=== PATIENT | male | born 1955 | race Caucasian/White ===

== ENCOUNTER 2017-12-22 08:02 | Outpatient (CLI) | payer OTHER ==
[~2017-12-22] VITALS: Ht 188 cm; Wt 96.8 kg
--- NOTE | ~2017-12-22 | HEMODYNAMI ---
PATIENT:RACHELL MEYER MEDICAL RECORD: [id number] : 57 LOCATION:[facility] ADMISSION DATE: 12/22/17 Generatedon:12/22/201710:44 Patient name: RACHELL MEYER Patient #: [id number] SSN: : 1955 Date of study: 12/22/2017 Page: Of Hemodynamic Procedure Report Patient Data Patient Demographics Procedure consent was obtained First Name: RACHELL Gender: Male Last Name: BETSY : 1955 Middle Initial: JAYCOB Age: 62 year(s) Patient #: [id number] Race: Unknown Additional ID: [id number] Contact details Address: [address] [place] [address] [place] State: [place] City: [facility] Zip code: [address] Past Medical History Allergies Allergen Reaction Date Comments Reported Other allergy 12/22/2017 crestor Admission Admission Data Admission Date: 12/22/2017 Admission Time: 8:02 Lab Results Lab Result Date: 12/22/2017 Lab Result Time: 0:00 Biochemistry Name Units Result Min Max BUN mg/dl 18 --(---*)-- 7 18 Creatinine mg/dl 1.2 --(---*)-- 0.6 1.3 CBC Name Units Result Min Max Hemoglobin g/dl 14 --(*---)-- 13.5 17.5 Procedure Procedure Types Cath Procedure Peripheral Cath Diagnostic Procedure Cath Peripheral Iuwkp-Rnwjjix-Zqp-Off Four Vessel Arteriogram Peripheral vascular Intervention Angioplasty Angioplasty Fem/Pop Stent Stent Iliac w/plasty Initial Procedure Description Procedure Date Procedure Date: 12/22/2017 Procedure Start Time: 10:07 Procedure End Time: 10:37 Procedure Staff Name Function Umberto Ramey MD Performing Physician Lore Christensen RT Scrub Nikhil Villafuerte RN Nurse Procedure Data Cath Procedure Fluoroscopy Diagnostic fluoroscopy Total fluoroscopy Time: 4.7 time: 4.7 min min Diagnostic fluoroscopy Total fluoroscopy dose: 285 dose: 285 mGy mGy Contrast Material Contrast Material Type Amount (ml) Isovue 300 143 Entry Location Entry Primary Successful Side Size Upsize Upsize Entry Closure Succes sful Closure Location (Fr) 1 (Fr) 2 (Fr) Remarks Device Remarks Femoral Right 5 Fr 6 Fr 6 Fr Exoseal artery Long Short Diagnostic catheters Device Type Used For End Catheter Placement DIAGNOSTIC 3DRC 5Fr catheter ([id number]) DIAGNOSTIC UF 5Fr Abdominal catheter ([id number]) aortogram with runoff Procedure Complications No complications Procedure Medications Medication Administration Route Dosage 0.9% NaCl I.V. 100 ml/hr Oxygen etCO2 Nasal cannula 2 l/min Heparin Flush Bag added to field 2 bags (1000units/500ml NS) Lidocaine 2% added to field 20 Versed I.V. 2 mg Fentanyl I.V. 100 mcg Versed I.V. 1 mg Heparin Bolus I.V. 4000 units Integrilin (Bolus I.V. 9 ml 2mg/ml) Integrilin (Bolus wasted 1 ml 2mg/ml) Plavix P.O. 600 mg Hemodynamics Rest HGB: 14 (g/dl) Heart Rate: 64 (bpm) Snapshots Pre Cath Intra NCS Post Cath Vital Signs Time Heart Resp SPO2 etCO2 NIBP (mmHg) Rhythm Pain Sedation Rate (ipm) (%) (mmHg) Status Level (bpm) 9:28:16 69 16 97 0 125/68(109) NSR 0 (11) 10(A) , No pain 9:32:32 81 18 98 31.4 112/67(90) NSR 0 (11) 10(A) , No pain 9:36:42 74 15 96 29.9 104/67(82) NSR 0 (11) 10(A) , No pain 9:40:50 78 13 98 28.4 99/64(77) NSR 0 (11) 10(A) , No pain 9:44:56 71 18 95 15.7 97/67(76) NSR 0 (11) 10(A) , No pain 9:49:02 65 13 97 16.4 103/60(83) NSR 0 (11) 10(A) , No pain 9:53:09 79 13 95 19.5 106/64(80) NSR 0 (11) 10(A) , No pain 9:57:19 71 13 95 17.2 95/58(76) NSR 0 (11) 10(A) , No pain 10:01:25 72 13 96 11.9 91/57(71) NSR 0 (11) 10(A) , No pain 10:05:31 69 13 96 0 98/56(68) NSR 0 (11) 10(A) , No pain 10:09:39 72 19 97 19.4 99/55(76) NSR 0 (11) 10(A) , No pain 10:13:46 72 21 96 9.7 94/58(70) NSR 0 (11) 10(A) , No pain 10:17:54 72 15 95 1.4 91/53(74) NSR 0 (11) 9(A) , No pain 10:22:02 71 18 95 0 83/49(63) NSR 0 (11) 9(A) , No pain 10:26:08 71 16 95 0 90/48(62) NSR 0 (11) 9(A) , No pain 10:30:14 73 19 94 0 89/54(73) NSR 0 (11) 10(A) , No pain 10:34:17 72 14 96 0 93/55(67) NSR 0 (11) 10(A) , No pain Medications Time Medication Route Dose Verified Delivered Reason Notes Effectiveness by by 9:33:03 0.9% NaCl I.V. 100 Nikhil Nikhil Per physician ml/hr Christo Villafuerte RN RN 9:33:12 Oxygen etCO2 2 Nikhil Nikhil Per physician Nasal l/min Christo Villafuerte cannula RN RN 9:33:23 Heparin Flush added 2 Nikhil Nikhil used for Bag to bags Christo Villafuerte procedure (1000units/500ml field GOODEN RN NS) 9:33:34 Lidocaine 2% added 20ml Nikhil Nikhil for local to vial Christo Villafuerte anesthetic field GOODEN RN 10:07:43 Versed I.V. 2 mg Nikhil Nikhil for sedation Christo Villafuerte RN RN 10:07:52 Fentanyl I.V. 100 Nikhil Nikhil for sedation mcg Christo Villafuerte RN RN 10:16:12 Versed I.V. 1 mg Nikhil Nikhil for sedation Christo Villafuerte RN RN 10:16:24 Heparin Bolus I.V. 4000 Nikhil Nikhil for units Christo Villafuerte anticoagulation RN RN 10:17:16 Integrilin I.V. 9 ml Nikhil Tejeda for (Bolus 2mg/ml) Christo Villafuerte antiplatelet RN RN therapy 10:17:25 Integrilin wasted 1ml Nikhil Tejeda to sharp's (Bolus 2mg/ml) Christo Villafuerte RN RN 10:32:10 Plavix P.O. 600 Nikhil Tejeda for mg Christo Villafuerte antiplatelet RN RN therapy Procedure Log Time Note 9:18:06 Federico Roberson on monitor 9:18:11 Nikhil Villafuerte RN sent for patient. Start room use. 9:18:12 Time tracking: Regular hours (M-F 7:00 - 5:00) 9:18:17 Plan of Care:Hemodynamics will remain stable., Cardiac rhythm will remain stable., Comfort level will be maintained., Respiratory function will remain adequate., Patient/ family verbilizes understanding of procedure., Procedure tolerated without complication., Recovers from procedure without complications.. 9:27:06 Patient received from Pre/Post Procedure Room to [facility] 2 Alert and oriented. Tansferred to table in Supine position. 9:27:07 Warm blankets applied, and parth hugger turned on for patient comfort. 9:27:08 Correct patient and procedure confirmed by team. 9:27:09 Signed procedure consent form obtained from patient. 9:27:11 ECG and BP/O2 sat monitors applied to patient. 9:27:13 Vital chart was started 9:27:14 Baseline sample Acquired. 9:33:03 0.9% NaCl 100 ml/hr I.V. was administered by Nikhil Villafuerte RN; Per physician; 9:33:12 Oxygen 2 l/min etCO2 Nasal cannula was administered by Nikhil Villafuerte RN; Per physician; 9:33:23 Heparin Flush Bag (1000units/500ml NS) 2 bags added to field was administered by Nikhil Villafuerte RN; used for procedure; 9:33:34 Lidocaine 2% 20ml vial added to field was administered by Nikhil Villafuerte RN; for local anesthetic; 9:35:29 Baseline sample Acquired. 9:35:33 Rhythm: sinus rhythm 9:35:34 Full Disclosure recording started 9:36:25 H&P Date Dictated: 12/18/2017 Within 30 days and on chart.. 9:36:26 Pre-procedure instructions explained to patient. 9:36:27 Pre-op teaching completed and patient verbalized understanding. 9:36:29 Family in waiting room. 9:36:31 Patient NPO since Midnight. 9:37:00 Patient allergic to Other allergycrestor 9:37:02 Is the patient allergic to Iodine/contrast media? No. 9:37:07 Was the patient premedicated? No 9:37:09 Is patient on blood thinner?No 9:37:19 Patient diabetic? No. 9:37:21 If diabetic: On Metformin? No 9:37:22 ----Pre-sedation anethsthesia assessment.---- 9:37:26 Previous problem with sedation/anesthesia? No ? 9:37:29 Snore? Yes 9:37:30 Sleep apnea? No 9:37:32 Deviated septum? No 9:37:33 Opens mouth fully? Yes 9:37:35 Sticks out tongue? Yes 9:37:37 Airway obstruction? No ? 9:37:40 Dentures? Yes out 9:37:44 Pre procedure: right dorsailis pedis pulse 1+ Palpable, but thready & weak; easily obliterated 9:37:47 Pre procedure: left dorsailis pedis pulse 1+ Palpable, but thready & weak; easily obliterated 9:37:51 Patient pain scale 0/10 ?. 9:37:58 IV patent on arrival in left forearm with 0.9% NaCl at 10ml/hr. 9:38:15 Lab Result : Creatinine 1.2 mg/dl 9:38:15 Lab Result : BUN 18 mg/dl 9:38:15 Lab Result : Hemoglobin 14 g/dl 9:38:19 Lab results completed and on chart. 9:38:22 Bilateral groins area was prepped with chlora-prep and draped in sterile fashion 9:38:23 Alarms reviewed by R. N. 9:38:24 Sharps counted by scrub and verified by R.N. 9:41:39 ACIST Syringe (91357) opened to sterile field. 9:41:40 Bag Decanter () opened to sterile field. 9:41:42 Medline Cath Pack ([id number]) opened to sterile field. 9:41:43 DIAGNOSTIC WIRE .035 260cm J wire (356488) opened to sterile field. 9:41:44 ACIST Hand Control (40291) opened to sterile field. 9:41:46 Tegaderm 4 x 4 (1626W) opened to sterile field. 9:41:47 PERCUTANEOUS ENTRY 19GA needle opened to sterile field. 9:41:51 SHEATH Prelude 5Fr 0.035 (OPE-5Z-17-035) opened to sterile field. 9:42:58 Zero performed for pressure channel P1 9:57:21 Physician arrived 10::17 --------ALL STOP TIME OUT------ ::17 Final Timeout: patient, procedure, and site verified with staff and physician. All members of the team are in agreement. 10:07:19 Bilateral groins site verified by team. 10:07:22 Physical assessment completed. ASA score P 2 - A patient with mild systemic disease as per Umberto Ramey MD. 10:07:27 Sedation plan: IV Moderate Sedation Medication:Versed, Fentanyl 10:07:32 Procedure started. 10:07:43 Versed 2 mg I.V. was administered by Nikhil Villafuerte RN; for sedation; 10:07:51 Local anesthetic to left femerol artery with Lidocaine 2% by Umberto Ramey MD.INITIAL ACCESS ONLY 10:07:52 Fentanyl 100 mcg I.V. was administered by Nikhil Villafuerte RN; for sedation; 10:08:04 [employer] rt monitor 10:08:13 A 5 Fr sheath was inserted into the Right Femoral artery 10:08:47 A DIAGNOSTIC 3DRC 5Fr catheter ([id number]) was advanced over the wire and used for . 10:08:57 4v 10:09:24 Right carotid angiography performed. 10:09:26 Right subclavian angiography performed 10:09:27 Left carotid angiography performed. 10:09:28 Left subclavian angiography performed 10:10:02 Catheter removed. 10:10:33 A DIAGNOSTIC UF 5Fr catheter ([id number]) was advanced over the wire and used for Abdominal aortogram with runoff. 10:10:48 Abdominal angiogram w/ runoff was performed. 10:11:39 Left leg runoff performed. 10:11:41 Right leg runoff performed. 10:12:08 SHEATH 6FR Destination (RSR01) opened to sterile field. 10:12:20 Sheath upsized to a 6 Fr Long. 10:12:44 SHEATH 6Fr Prelude ([id number]) opened to sterile field. 10:13:21 INFLATOR Merit BasixCompak (VS2510) opened to sterile field. 10:13:34 GLIDE WIRE Super Stiff Angled 260cm (IB5830) opened to sterile field. 10:14:08 glide wire advanced. 10:14:53 glidewire advanced around horn through UF, UF removed and 5fr sheath exchanged for a 6fr destination 10:16:12 Versed 1 mg I.V. was administered by Nikhil Villafuerte RN; for sedation; 10:16:24 Heparin Bolus 4000 units I.V. was administered by Nikhil Villafuerte RN; for anticoagulation; 10:17:03 CHOICE PT Extra Support J 300cm guide wire ([id number]) opened to sterile field. 10:17:16 Integrilin (Bolus 2mg/ml) 9 ml I.V. was administered by Nikhil Villafuerte RN; for antiplatelet therapy; 10:17:18 Wire removed. 10:17:24 Wire advanced across lesion. cptes 10:17:25 Integrilin (Bolus 2mg/ml) 1ml wasted was administered by Nikhil Villafuerte RN; to sharp's; 10:22:44 Inflate balloon Inflation number: 1 A STELLAREX 6 x 40 DE balloon ([id number]) was prepped and advanced across the Distal Superficial Femoral, Right, then inflated to 15 ERICA for 3:54 (min:sec). 10:25:01 Inflation number: 2 The STELLAREX 6 x 40 DE balloon ([id number]) was reinflated across the Distal Superficial Femoral, Right, to 14 ERICA for 2:10 (min:sec). 10:25:48 Balloon removed over the wire. 10:26:47 Procedure type changed to Cath procedure, Peripheral Cath Diagnostic Procedure, Cath Peripheral, Wdons-Jnnayau-Pbi-Off, Four Vessel Arteriogram, Peripheral vascular Intervention, Angioplasty, Angioplasty Fem/Pop, Stent, Stent Iliac w/plasty Initial 10:27:25 destination backed out to the left iliac for stenting 10:31:27 Place stent Inflation Number: 1 A PAULO 7 x 18 x 135 stent ([id number]) was prepped and advanced across the Mid Common Iliac, Left. The stent was deployed at 11 ERICA for 0:48 (min:sec). 10::34 Stent catheter was removed intact over wire. 10::35 Wire removed. 10::44 Sheath upsized to a 6 Fr Short. 10::44 Sheath removed intact; hemostasis achieved with Exoseal to the Right Femoral artery. 10:31:50 Procedure ended.(Physican Out) 10:32:02 EXOSEAL 6Fr (EX600) opened to sterile field. 10:32:10 Plavix 600 mg P.O. was administered by Nikhil Villafuerte RN; for antiplatelet therapy; 10:33:25 Fluoroscopy time 04.70 minutes. 10:33:31 Fluoroscopy dose: 285 mGy 10:33:31 Flurop Dose total: 285 10:34:39 Contrast amount:Isovue 300 143ml. 10:34:40 Sharps counted by scrub and verified by R.N. 10:34:42 Insertion/operative site no bleeding no hematoma. 10:34:45 Post-op/insertion site Left Femoral artery dressed using a 4 x 4 and Tegaderm. 10:34:49 Post left femerol artery:stable 10:34:51 Post Procedure Pulses reassessed and unchanged 10:34:54 Post procedure rhythm: sinus rhythm 10:34:57 Post procedure instruction explained to patient.Patient verbalizes understanding. 10:34:59 Procedure and supply charges have been captured, reviewed, submitted and are correct. 10:37:35 Procedure Complication : No complications 10:37:37 Vital chart was stopped 10:37:38 See physician's report for complete and final results. 10:37:41 Report given to Pre/Post Procedure Room. 10:37:49 Patient transfered to Pre/Post Procedure Room with Stretcher. 10:37:51 Procedure ended. 10:37:51 Full Disclosure recording stopped 10:37:54 End room use (Document Last) Intervention Summary Intervention Notes Time ActionType Lesion and Equipment Used Action# Pressure Duration Attributes 10:22:44 Inflate Distal STELLAREX 6 x 40 1 15 03:54 balloon Superficial DE balloon Femoral, ([id number]) Right 10:25:01 Reinflate Distal STELLAREX 6 x 40 2 14 02:10 balloon Superficial DE balloon Femoral, ([id number]) Right 10:31:27 Place stent Mid Common PAULO 7 x 18 x 1 11 00:48 Iliac, Left 135 stent ([id number]) Device Usage Item Name Manufacture Quantity Catalog Number [facility] nt Minimal Lot# / Charge Number Stock Stock Serial# Code ACIST Syringe Acist 1 33889 [id number] 351500 89029 3 20 (63558) [employer] Bag Decanter Microtek 1 2001S 750330 83412 75012 1 5 () Medical Inc. Medline Cath Pack Cardinal 1 [id number] 586568 86995 82002 1 5 ([id number]) Health DIAGNOSTIC WIRE St Krunal 1 876498 976696 909677 96807 0 30 .035 260cm J wire (927436) ACIST Hand Acist 1 00984 688868 259496 60846 6 5 Control (67753) [employer] Inc Tegaderm 4 x 4 3M 1 1626W 887121 337467 30583 2 5 (1626W) PERCUTANEOUS Cook Medical 1 T54187 439609 43683 6 5 ENTRY 19GA needle SHEATH Prelude Merit 1 MDH-7G-57-035 437010 630709 16205 6 5 5Fr 0.035 Medical (CVU-7W-61-035) DIAGNOSTIC 3DRC Cardinal 1 [id number] 189872 142172 57310 1 9 5Fr catheter Health (780176J) DIAGNOSTIC UF 5Fr Cardinal 1 [id number] 035667 088387 07342 0 10 catheter Health (443064W7) SHEATH 6FR Terumo 1 RSR01 415362 06336 79910 1 5 Destination (RSR01) SHEATH 6Fr Merit 1 [id number] 582246 818758 38002 7 5 Prelude Medical ([id number]) INFLATOR Merit Merit 1 LI1147 898321 728794 78190 6 15 Codenvy Medical (YI3187) GLIDE WIRE Super Terumo 1 XK8580 450846 796071 93705 0 5 Stiff Angled 260cm (XA5470) CHOICE PT Extra Rives 1 [id number] 332389 446209 29050 8 5 [id number] Support J 300cm Scientific guide wire (3255980Z5) STELLAREX 6 x 40 Paula 1 [id number] 036832 594833 74775 7 5 [id number] MA balloon [facility] ([id number]) (356636) PAULO 7 x 18 x Cardinal 1 [id number] 519045 05977 3 5 [id number] 135 stent Health ([id number]) EXOSEAL 6Fr Cardinal 1 EX600 745040 988518 54584 3 10 (EX600) Health Signature Audit [place] Stage Time Signature Unsigned Intra-Procedure 12/22/2017 Lore Christensen 10:44:09 AM RT(R) [id number] [place] [address]
--- NOTE | ~2017-12-22 | OP ---
PATIENT NAME: RACHELL MEYER MEDICAL RECORD: [id number] :57 LOCATION:D.CAT ADMISSION DATE: SURGEON: YADIEL DURAN MD DATE OF OPERATION: 12/22/2017 FOUR-VESSEL CAROTID AND VERTEBRAL ANGIOGRAPHY INDICATIONS: Unsteady gait, dizziness, syncope, carotid vascular disease. PROCEDURE IN DETAIL: After informed consent was obtained and detailed description of risks, benefits as well as alternative therapies, the patient elected to proceed with angiogram and carotid angiography. FINDINGS: There was subselection of each subclavian as well as left carotid. RIGHT SIDE: Common internal and external carotids have mild plaquing, none greater than 20%, no flow-limiting stenosis. Vertebral artery has no significant disease. LEFT SYSTEM: The common internal and external carotids have mild plaquing, no greater than 20%, no flow-limiting stenosis. Vertebral artery has no significant disease. OVERALL IMPRESSION: No significant carotid vascular disease is present. Symptomatology is not secondary to carotid vascular insufficiency. TRANSINT:[id number] Voice Confirmation ID: [id number] DOCUMENT ID: [id number] YADIEL DURAN MD at 1752 CC: [id number] DICTATION DATE: 12/22/17 1036 CHARGE MASTER SPECIALIST: 12/27/17 1118 DEP CLI 12/22/17 [address] [place] [address]
--- NOTE | ~2017-12-22 | OP ---
PATIENT NAME: RACHELL MEYER MEDICAL RECORD: [id number] :57 LOCATION:D.CAT ADMISSION DATE: SURGEON: YADIEL DURAN MD DATE OF OPERATION: 12/22/2017 DATE OF SERVICE: 12/22/2017 PROCEDURES: 1. Stent placement, iliac, left. 2. SIGNAL HELPER iliac, left. 3. SIGNAL HELPER, right popliteal. 4. Aortofemoral runoff. 5. Abdominal aortography. INDICATION: Claudication and peripheral vascular disease. DESCRIPTION OF PROCEDURE: After informed consent was obtained and after detailed description of risks, benefits as well as alternative therapies, the patient elected to proceed with angiogram and angioplasty. The left femoral area was prepped and draped in normal sterile fashion. Left femoral artery was cannulated via modified Seldinger technique with placement of 6-Turkish sheath. All catheters exchanged through this sheath. FINDINGS: The abdominal aortography was performed. The catheter was pulled down for aortofemoral runoff. Abdominal aortography reveals no significant abdominal aortic disease. No dissection or aneurysm formation. RIGHT LEG: A. Iliac: The common internal and external iliacs have mild irregularities, but no flow-limiting stenosis. B. Femoral system: The common superficial and deep femoral have mpeh-ad-aljdlihn irregularities, but no flow-limiting stenosis. C. Popliteal and infrapopliteal: The popliteal vessel has a previously placed stent with greater than 70% in-stent restenosis in the mid portion of the stent. Infrapopliteal vessels are patent giving a 3-vessel runoff to the foot. LEFT LEG: A. Iliac: The common iliac is devoid of disease. The external iliac has greater than 70% stenosis at its proximal aspect. B. Femoral system: The common superficial and deep femoral have zrhr-xu-uummpors irregularities, but no flow-limiting stenosis. C. Popliteal and infrapopliteal vessels are patent giving 3-vessel runoff to the foot. SIGNAL HELPER OF THE RIGHT POPLITEAL: We used a drug-eluting balloon, which was a 6.0 x 40 Stellarex. Two inflations were made at 3 minutes each. Result was 0% residual stenosis throughout. SIGNAL HELPER STENT OF LEFT ILIAC: Balloon and stent combination used was a 7 x 10 Cordis Donna. Result was 0% residual stenosis. OVERALL IMPRESSION: Successful percutaneous transluminal angioplasty stent of the left iliac and successful percutaneous transluminal angioplasty with drug-eluting balloon of the right popliteal for in-stent restenosis, both going from 70-80% initial stenosis to 0% residual. OPERATIVE REPORT [id number] RACHELL MEYER TRANSINT:[id number] Voice Confirmation ID: [id number] DOCUMENT ID: [id number] YADIEL DURAN MD at 1752 CC: [id number] DICTATION DATE: 12/22/17 1036 INSULATION BOARD CALENDER OPERATOR: 12/22/17 1247 DEP CLI 12/22/[address] [address]
[~2017-12-22 08:02] MED LIST: BAYER CHEWABLE81 MG PO; NORVASC5 MG PO; PLAVIX75 MG PO; PROZAC20 MG PO
[2017-12-22] MEDS ORDERED: LANOXIN125 MCG PO (08:26)
[2017-12-22] MEDS ORDERED: ULTRAM50 MG PO (08:26)
[2017-12-22] MEDS ORDERED: LIPITOR10 MG PO (08:26)
[2017-12-22 08:38] VITALS: BP 127/81; Ht 188 cm; Wt 96.8 kg
[2017-12-22 08:56] LABS: BASOPHILS 0.9 % (0-2); EOSINOPHILS 3.1 % (0-7); HEMATOCRIT 41.7 % (42.0-54.0); IMMATURE GRANULOCYTES 0.2 % (0-5); LYMPHOCYTES 28.4 % (15-50); MCHC 33.6 g/dL (31.0-37.0); MCV 89.3 fL (80.0-100.0); MEAN PLATELET VOLUME 10.4 fL (7.4-10.4); MONOCYTES 9.2 % (2-11); NEUTROPHILS 58.2 % (40-80); PLATELET COUNT 284 10x3/uL (130-400); RBC 4.67 10x6/uL (4.20-6.10); RDW 13.4 % (11.5-14.5); WBC 6.4 10x3/uL (4.8-10.8)
[2017-12-22 09:08] LABS: ANION GAP 14.1 mmol/L (8-16); CALCIUM 9.1 mg/dL (8.5-10.1); CARBON DIOXIDE 26.5 mmol/L (21.0-32.0); CREATININE - SERUM 1.2 mg/dL (0.6-1.3); POTASSIUM - SERUM 4.6 mmol/L (3.5-5.1)
[2017-12-22] MEDS ORDERED: PLAVIX75 MG PO (11:00)
== END 2017-12-22 14:50 | disposition home or self-care (01) ==
LOC: D.CATH 08:02
PROVIDERS: Internal Medicine Interventional Cardiology
DX: I70.213 Atherosclerosis of native arteries of extremities with intermittent claudication, bilateral legs (principal); I65.23 Occlusion and stenosis of bilateral carotid arteries; Z01.812 Encounter for preprocedural laboratory examination

== ENCOUNTER 2018-07-27 09:55 | Outpatient (CLI) | payer OTHER ==
[~2018-07-27] VITALS: Ht 188 cm; Wt 97.7 kg
--- NOTE | ~2018-07-27 | OP ---
PATIENT NAME: RACHELL MEYER MEDICAL RECORD: [id number] :57 LOCATION:D.CAT ADMISSION DATE: SURGEON: YADIEL DURAN MD DATE OF OPERATION: 07/27/2018 DATE OF SERVICE: 07/27/2018 PROCEDURES: 1. PTCA stent vein graft to RCA. 2. Left heart catheterization. 3. Selective coronary angiography. 4. Vein graft angiography. 5. LOVE angiography. 6. Left ventriculogram. INDICATION: Unstable angina and coronary artery disease. PROCEDURE IN DETAIL: After informed consent was obtained and after a detailed description of risks, benefits as well as alternative therapies, the patient elected to proceed with angiogram and angioplasty. The right femoral area was prepped and draped in normal sterile fashion. Right femoral artery was cannulated via modified Seldinger technique with placement of 6-German sheath. All catheters exchanged through this sheath. FINDINGS: Left ventriculogram was performed in standard 30-degree TURPIN view, reveals good cardiac wall motion throughout all segments. Overall ejection fraction estimated at 60%. SELECTIVE CORONARY ANGIOGRAPHY: 1. Left main is with no significant angiographic disease. 2. Left anterior descending is totally occluded. 3. The left circumflex has moderate irregularities, but no flow-limiting stenosis. 4. LOVE to the LAD is widely patent. Distal LAD is widely patent. 5. Right coronary is totally occluded. 6. Vein graft to right coronary is patent; however, intravascular ultrasound confirms there is greater than 80% stenosis in the distal shaft of the vein graft. PTCA STENT OF THE VEIN GRAFT TO THE RCA: The stent used was a 3.5 x 22 mm Integrity. Result was 0% residual stenosis. OVERALL IMPRESSION: Successful percutaneous transluminal coronary angioplasty stent of the vein graft to the right coronary artery going from 80% initial stenosis to 0% residual. TRANSINT:[id number] Voice Confirmation ID: [id number] DOCUMENT ID: [id number] OPERATIVE REPORT [id number] RACHELL MEYER JEFFREY MD CC: [id number] DICTATION DATE: 07/27/181411 HOUSEHOLD PERSONAL ASSISTANT: 07/27/184 DEP CLI 07/27/18 [place] [address]
--- NOTE | ~2018-07-27 | OP ---
PATIENT NAME: RACHELL MEYER MEDICAL RECORD: [id number] :57 LOCATION:D.CAT ADMISSION DATE: SURGEON: YADIEL DURAN MD DATE OF OPERATION: 07/27/2018 DATE OF SERVICE: 07/27/2018 PROCEDURES: 1. Stent placement, SFA, right. 2. TRUCK BRACER, SFA, right. 3. Aortofemoral runoff. 4. Abdominal aortography. INDICATION: Claudication and peripheral vascular disease. PROCEDURE IN DETAIL: After informed consent was obtained and after detailed description of risks, benefits as well as alternative therapies, the patient elected to proceed with angiogram and angioplasty. The left femoral area was prepped and draped in normal sterile fashion. Left femoral artery was cannulated via modified Seldinger technique with placement of a 6-English xfrwmo-xru-hydu sheath. All catheters exchanged through this sheath. FINDINGS: Abdominal angiography was performed. The catheter was pulled down for aortofemoral runoff. Abdominal aortography reveals no significant abdominal aortic disease, no dissection or aneurysmal formation. No renal artery stenosis. RIGHT LEG: A. Iliac: The common internal and external iliacs have mild irregularities, but no flow-limiting stenosis. B. Femoral system: The common and deep femoral are widely patent. Superficial femoral has 90% stenosis in the mid vessel. After this, there is a previously placed stent, this is patent. C. Popliteal and infrapopliteal vessels are widely patent. Good three-vessel run-off to the foot. LEFT LEG: A. Iliac: The common internal and external iliacs have moderate irregularities, but no flow-limiting stenosis. B. Femoral system: The common and deep femoral are widely patent. Superficial femoral has 80% stenosis proximally. After this, there is previously placed stent that is widely patent. C. Popliteal and infrapopliteal vessels are widely patent with good three-vessel run-off to the foot. TRUCK BRACER STENT OF THE RIGHT SFA: The balloon used was a 6.0 balloon. This yielded suboptimal result with severe intimal dissection. Stenting was undertaken with a 7 x 20 SMART stent. Result was 0% residual stenosis. OVERALL IMPRESSION: Successful percutaneous transluminal angioplasty stent of the right superficial femoral artery going from 90% initial stenosis to 0% residual. TRANSINT:[id number] Voice Confirmation ID: [id number] DOCUMENT ID: [id number] OPERATIVE REPORT [id number] RACHELL MEYER JEFFREY MD CC: [id number] DICTATION DATE: 07/27/18 1412 REPORT SPECIALIST: 07/27/18 2308 DEP CLI 07/27/18 [place] [id number] [facility] [place] [address]
--- NOTE | ~2018-07-27 | HEMODYNAMI ---
PATIENT:RACHELL MEYER MEDICAL RECORD: [id number] : 57 LOCATION:DODELL ADMISSION DATE: 07/27/18 Generatedon:07/27/201814:13 Patient name: RACHELL MEYER Patient #: [id number] SSN: : 1955 Date of study: 07/27/2018 Page: Of Hemodynamic Procedure Report Patient Data Patient Demographics Procedure consent was obtained First Name: RACHELL Gender: Male Last Name: BETSY : 1955 Middle Initial: JAYCOB Age: 63 year(s) Patient #: [id number] Race: Unknown Additional ID: [id number] Contact details Address: [address] [place] [address] [place] State: [place] City: [facility] Zip code: [address] Past Medical History Allergies Allergen Reaction Date Comments Reported Other allergy 12/22/2017 crestor Other allergy 07/27/2018 CRESTOR Admission Admission Data Admission Date: 07/27/2018 Admission Time: 9:55 Procedure Procedure Types Cath Procedure Diagnostic Procedure LHC LHC w/Coronaries w/Grafts FFR/IVUS Intra-Coronary IVUS Initial Sedation Charges Moderate Sedation up to 15 minutes PCI Procedure AMI/SVG/CLASSIFIED COPY CONTROL CLERK PTCA or Stent SVG-BMS/KISHA Initial Peripheral Cath Diagnostic Procedure Cupboard Builder Peripheral Procedures Zyizs-Unquqqh-Kbn-Off Peripheral vascular Intervention Angioplasty Angioplasty Fem/Pop Procedure Description Procedure Date Procedure Date: 07/27/2018 Procedure Start Time: 13:37 Procedure End Time: 14:10 Procedure Staff Name Function Umberto Ramey MD Performing Physician Radha Ford RT Monitor Win Baldwin RT Scrub Waqar Khan RN Nurse Procedure Data Cath Procedure Fluoroscopy Diagnostic fluoroscopy Total fluoroscopy Time: 9.4 time: 9.4 min min Diagnostic fluoroscopy Total fluoroscopy dose: dose: 1024 mGy 1024 mGy Contrast Material Contrast Material Type Amount (ml) Isovue 300 199 Entry Location Entry Primary Successful Side Size Upsize Upsize Entry Closure Succes sful Closure Location (Fr) 1 (Fr) 2 (Fr) Remarks Device Remarks Femoral Left 5 Fr 6 Fr Exoseal artery Long Estimated blood loss: 10 ml Diagnostic catheters Device Type Used For End Catheter Placement MULTIPACK Pigtail 5 Fr Procedure catheter MULTIPACK JL 4.0 5Fr Procedure catheter MULTIPACK 3DRC 5Fr Procedure catheter DIAGNOSTIC AR2 MOD 5 Fr Procedure catheter ([id number]) DIAGNOSTIC IM 5Fr Procedure catheter ([id number]) Procedure Complications No complications Procedure Medications Medication Administration Route Dosage Oxygen etCO2 Nasal cannula 2 l/min Heparin Flush Bag added to field 2 bags (1000units/500ml NS) 0.9% NaCl I.V. 100 ml/hr Lidocaine 2% added to field 20 Fentanyl I.V. 50 mcg Versed I.V. 1 mg Fentanyl I.V. 50 mcg Versed I.V. 1 mg Fentanyl I.V. 50 mcg Fentanyl I.V. 50 mcg Heparin Bolus I.V. 5000 units Integrilin (Bolus I.V. 9 ml 2mg/ml) Integrilin (Bolus wasted 1 ml 2mg/ml) Plavix P.O. 600 mg Hemodynamics Rest Heart Rate: 61 (bpm) Snapshots Pre Cath Intra NCS Post Cath Vital Signs Time Heart Resp SPO2 etCO2 NIBP (mmHg) Rhythm Pain Sedation Rate (ipm) (%) (mmHg) Status Level (bpm) 13:24:59 67 16 100 32.5 138/76(121) NSR 0 (11) 10(A) , No pain 13:29:11 67 16 99 34 106/64(88) NSR 0 (11) 10(A) , No pain 13:33:25 61 16 99 37.1 108/50(83) NSR 0 (11) 10(A) , No pain 13:37:37 64 17 98 14.3 104/55(80) NSR 0 (11) 9(A) , No pain 13:41:49 67 16 98 22.7 94/52(72) NSR 0 (11) 9(A) , No pain 13:45:55 69 17 97 31.8 105/56(71) NSR 0 (11) 9(A) , No pain 13:50:05 65 17 98 28 102/55(82) NSR 0 (11) 9(A) , No pain 13:54:17 68 17 97 21.9 82/50(72) NSR 0 (11) 9(A) , No pain 13:58:18 71 16 97 31.8 94/59(77) NSR 0 (11) 9(A) , No pain 14:02:24 72 17 98 29.5 100/59(76) NSR 0 (11) 9(A) , No pain 14:06:30 73 16 99 31 112/65(85) NSR 0 (11) 9(A) , No pain 14:10:40 72 16 97 33.3 108/66(81) NSR 0 (11) 10(A) , No pain Medications Time Medication Route Dose Verified Delivered Reason Notes Effectiveness by by 13:24:55 Oxygen etCO2 2 Umberto Waqar Per physician Nasal l/min Tanvir Khan RN cannula 13:25:02 Heparin Flush added 2 Umberto Waqar used for Bag to bags Tanvir Khan RN procedure (1000units/500ml field NS) 13:25:11 0.9% NaCl I.V. 100 Umberto Waqar Per physician ml/hr Tanvir Khan RN 13:25:19 Lidocaine 2% added 20ml Umberto Waqar for local to vial Tanvir Khan RN anesthetic field 13:36:05 Fentanyl I.V. 50 Umberto Waqar for sedation mcg Tanvir Khan RN 13:36:12 Versed I.V. 1 mg Umberto Waqar for sedation Tanvir Khan RN 13:40:00 Fentanyl I.V. 50 Umberto Waqar for sedation mcg Tanvir Khan RN 13:40:05 Versed I.V. 1 mg Umberto Waqar for sedation Tanvir Khna RN 13:43:06 Fentanyl I.V. 50 Umberto Waqar for sedation mcg Tanvir Khan RN 13:49:29 Fentanyl I.V. 50 Umberto Waqar for sedation mcg Tanvir Khan RN 13:49:40 Heparin Bolus I.V. 5000 Umberto Waqar for units Tanvir Khan RN anticoagulation 13:49:50 Integrilin I.V. 9 ml Umberto Waqar for (Bolus 2mg/ml) Tanvir Khan RN antiplatelet therapy 13:51:21 Integrilin wasted 1 ml Umberto Waqar for (Bolus 2mg/ml) Tauth MD Khan RN antiplatelet therapy 14:11:39 Plavix P.O. 600 Umberto Waqar for mg Tanvir Khan RN antiplatelet therapy Procedure Log Time Note 13:11:36 Waqar Khan RN sent for patient. Start room use. 13:11:37 Time tracking: Regular hours (M-F 7:00 - 5:00) 13:11:40 Plan of Care:Hemodynamics will remain stable., Cardiac rhythm will remain stable., Comfort level will be maintained., Respiratory function will remain adequate., Patient/ family verbilizes understanding of procedure., Procedure tolerated without complication., Recovers from procedure without complications.. 13:11:43 Signed procedure consent form obtained from patient. 13:11:44 Diagnostic Cath status Elective 13:11:52 H&P Date Dictated: 07/25/2018 Within 30 days and on chart., H&P Addendum completed by physician on day of procedure. (MUST COMPLETE FOR ALL OUTPATIENTS). 13:12:07 Patient allergic to Other allergyCRESTOR 13:13:59 Patient received from Pre/Post Procedure Room to CCL 2 Alert and oriented. Tansferred to table in Supine position. 13:14:00 Warm blankets applied, and parth hugger turned on for patient comfort. 13:14:01 Correct patient and procedure confirmed by team. 13:14:01 ECG and BP/O2 sat monitors applied to patient. 13:23:54 Vital chart was started 13:24:32 Baseline sample Acquired. 13:24:37 Rhythm: sinus rhythm 13:24:55 Oxygen 2 l/min etCO2 Nasal cannula was administered by Waqar Khan RN; Per physician; 13:24:56 Baseline sample Acquired. 13:24:59 Full Disclosure recording started 13:25:01 Pre-procedure instructions explained to patient. 13:25:01 Pre-op teaching completed and patient verbalized understanding. 13:25:02 Heparin Flush Bag (1000units/500ml NS) 2 bags added to field was administered by Waqar Khan RN; used for procedure; 13:25:03 Family in patients room. 13:25:04 Patient NPO since Midnight. 13:25:06 Is patient on blood thinner?No 13:25:08 Patient diabetic? No. 13:25:11 0.9% NaCl 100 ml/hr I.V. was administered by Waqar Khan RN; Per physician; 13:25:12 Previous problem with sedation/anesthesia? No ? 13:25:13 Snore? Yes 13:25:14 Sleep apnea? No 13:25:15 Deviated septum? No 13:25:16 Opens mouth fully? Yes 13:25:17 Sticks out tongue? Yes 13:25:19 Lidocaine 2% 20ml vial added to field was administered by Waqar Khan RN; for local anesthetic; 13:25:20 Airway obstruction? No ? 13:25:27 Dentures? No ? 13:25:37 Pre procedure: right dorsailis pedis pulse 2+ Normal; easily identifiable; not easily obliterated 13:25:39 Pre procedure: left dorsailis pedis pulse 2+ Normal; easily identifiable; not easily obliterated 13:25:41 Patient pain scale 0/10 ?. 13:25:45 IV patent on arrival in left antecubital with 0.9% NaCl at O. 13:25:59 Bilateral groins area was prepped with chlora-prep and draped in sterile fashion 13:26:00 Alarms reviewed by R. N. 13:26:01 Sharps counted by scrub and verified by R.N. 13:34:28 --------ALL STOP TIME OUT------ 13:34:28 Final Timeout: patient, procedure, and site verified with staff and physician. All members of the team are in agreement. 13:34:31 Bilateral groins site verified by team. 13:34:35 Maximum allowable Isovue 300 dose 300ml. Physician notified. (300ml for normal creatinines. For patients with creatinine of 1.7 or higher multiply weight(kg) x 5 divided by creatinine.) 13:34:38 Fire Safety Assessment: A--An alcohol-based skin anteseptic being used preoperatively., C--Open oxygen or nitrous oxide is being used., D--An ESU, laser, or fiber-optic light is being used. 13:34:44 Physical assessment completed. ASA score P 2 - A patient with mild systemic disease as per Umberto Ramey MD. 13:34:47 Sedation plan: IV Moderate Sedation Medication:Versed, Fentanyl 13:36:05 Fentanyl 50 mcg I.V. was administered by Waqar Khan RN; for sedation; 13:36:12 Versed 1 mg I.V. was administered by Waqar Khan RN; for sedation; 13:36:49 Procedure started. 13:37:27 Local anesthetic to left femerol artery with Lidocaine 2% by Umberto Ramey MD.INITIAL ACCESS ONLY 13:37:49 Use device set Femoral Dx 13:37:55 ACIST Syringe (96693) opened to sterile field. 13:37:56 Bag Decanter (2002S) opened to sterile field. 13:37:57 ACIST Hand Control (56238) opened to sterile field. 13:37:57 ACIST Manifold (30872) opened to sterile field. 13:37:58 Tegaderm 4 x 4 (1626W) opened to sterile field. 13:37:59 Medline Cath Pack ([id number]) opened to sterile field. 13:37:59 DIAGNOSTIC WIRE .035 260cm J wire (261125) opened to sterile field. 13:38:01 DIAGNOSTIC Multipack 5Fr catheter set (IJ8629) opened to sterile field. 13:38:01 SHEATH 5FR Platina (RJQ430) opened to sterile field. 13:38:12 A 5 Fr sheath was inserted into the Left Femoral artery 13:39:11 A MULTIPACK Pigtail 5 Fr catheter was advanced over the wire and used for Procedure. 13:39:58 LV gram done using TURPIN 13:40:00 Fentanyl 50 mcg I.V. was administered by Waqar Khan RN; for sedation; 13:40:01 Injector settings: Ml/sec: 10, Volume: 20, 13:40:05 Versed 1 mg I.V. was administered by Waqar Khan RN; for sedation; 13:40:09 EF : 55 % 13:40:22 PIGTAIL PULLED DOWN FOR AFRO 13:40:36 Abdominal angiogram w/ runoff was performed. 13:40:46 Left leg runoff performed. 13:41:43 Right leg runoff performed. 13:41:54 Catheter removed. 13:42:05 A MULTIPACK JL 4.0 5Fr catheter was advanced over the wire and used for Procedure. 13:43:06 Fentanyl 50 mcg I.V. was administered by Waqar Khan RN; for sedation; 13:43:06 LCA angiography performed. 13:43:07 Catheter removed. 13:43:12 A MULTIPACK 3DRC 5Fr catheter was advanced over the wire and used for Procedure. 13:44:13 LOVE to LAD angiography performed. 13:44:22 RCA angiography performed. 13:44:25 Catheter removed. 13:44:37 A DIAGNOSTIC AR2 MOD 5 Fr catheter ([id number]) was advanced over the wire and used for Procedure. 13:45:37 SVG to RCA angiography performed. 13:46:21 Catheter removed. 13:46:36 SHEATH 6FR Platina (ZCZ120) opened to sterile field. 13:46:49 INFLATOR Merit BasixCompak (YC7229) opened to sterile field. 13:46:51 CHOICE PT Extra Support 182cm wire ([id number]) opened to sterile field. 13:48:06 SHEATH 6FR Destination (RSR01) opened to sterile field. 13:48:12 Sheath upsized to a 6 Fr Long. 13:49:15 GUIDE 6FR MB 1 catheter (LA6MB1) opened to sterile field. 13:49:15 6 Fr MB1 guide catheter was inserted over the wire 13:49:29 Fentanyl 50 mcg I.V. was administered by Waqar Khan RN; for sedation; 13:49:40 Heparin Bolus 5000 units I.V. was administered by Waqar Khan RN; for anticoagulation; 13:49:50 Integrilin (Bolus 2mg/ml) 9 ml I.V. was administered by Waqar Khan RN; for antiplatelet therapy; 13:50:02 CHOICE ES 182 wire advanced. 13:50:34 Wire advanced across lesion. 13:51:21 Integrilin (Bolus 2mg/ml) 1 ml wasted was administered by Waqar Khan RN; for antiplatelet therapy; 13:52:34 IVUS catheter advanced over wire. 13:52:57 IVUS PASS TO SVG - RCA LESION PERFORMED 13:52:59 IVUS catheter removed over wire. 13:53:53 Place stent Inflation Number: 1 A INTEGRITY RX 3.5 x 22 stent ([id number]) was prepped and advanced across the Undefined1. The stent was deployed at 15 ERICA for 0:10 (min:sec). 13:53:56 Stent catheter was removed intact over wire. 13:53:57 Wire removed. 13:53:57 Guide catheter removed. 13:54:44 GLIDE WIRE Angled Super Stiff 180cm (DI1326) opened to sterile field. 13:55:10 A DIAGNOSTIC IM 5Fr catheter ([id number]) was advanced over the wire and used for Procedure. 13:55:39 GLIDE WIRE ADVANCED WITH IM CATH AROUND THE HORN 13:55:51 TORQUE DEVICE PLASTIC .038 ( TD01) opened to sterile field. 13:56:55 LONG SHEATH ADVANCED AROUND HORN 13:57:29 IM CATH AND GLIDE WIRE REMOVED 13:57:37 CHOICE PT Extra Support J 300cm guide wire ([id number]) opened to sterile field. 13:58:17 CHOICE ES 300 wire advanced. 13:58:18 Wire advanced across lesion. 14:00:16 Inflate balloon Inflation number: 1 A SABER 6.0 X 2 X 150 balloon ([id number]) was prepped and advanced across the Mid Superficial Femoral, Right, then inflated to 7 ERICA for 0:08 (min:sec). 14:00:28 Balloon removed over the wire. 14:02:00 SMART 7 X 20 X 120 stent ([id number]) was deployed across Mid Superficial Femoral, Right . 14:02:13 Stent catheter was removed intact over wire. 14:03:07 Inflation number: 2 The SABER 6.0 X 2 X 150 balloon ([id number]) was reinflated across the Mid Superficial Femoral, Right, to 11 ERICA for 0:10 (min:sec). 14:03:24 Inflation number: 3 The SABER 6.0 X 2 X 150 balloon ([id number]) was reinflated across the Mid Superficial Femoral, Right, to 11 ERICA for 0:10 (min:sec). 14:03:39 Balloon removed over the wire. 14:04:23 LONG SHEATH EXCHANGED FOR SHORT SHEATH 14:04:29 EXOSEAL 6Fr (EX600) opened to sterile field. 14:04:58 Sheath removed intact; hemostasis achieved with Exoseal to the Left Femoral artery. 14:05:46 Procedure ended.(Physican Out) 14:05:59 Fluoroscopy time 09.40 minutes. 14:06:03 Fluoroscopy dose: 1024 mGy 14:06:03 Flurop Dose total: 1024 14:06:07 Contrast amount:Isovue 300 199ml. 14:06:08 Sharps counted by scrub and verified by R.N. 14:06:11 Post-op/insertion site Left Femoral artery dressed using a 4 x 4 and Tegaderm. 14:06:15 Post-procedure physical assessment completed. ASA score P 2 - A patient with mild systemic disease as per Umberto Ramey MD. 14:06:19 Post procedure rhythm: sinus rhythm 14:06:21 Estimated blood loss: 10 ml 14:06:22 Post procedure instruction explained to patient.Patient verbalizes understanding. 14:06:22 Patient needs reinforcement of post procedure teaching. 14:07:49 Procedure type changed to Cath procedure, Diagnostic procedure, LHC, LHC w/Coronaries w/Grafts, FFR/IVUS, Intra-Coronary IVUS Initial, Sedation Charges, Moderate Sedation up to 15 minutes, PCI procedure, AMI/SVG/CLASSIFIED COPY CONTROL CLERK PTCA or Stent, SVG-BMS/KISHA Initial, Peripheral Cath Diagnostic Procedure, Cupboard Builder Peripheral Procedures, Wwazn-Ejdiroz-Vda-Off, Peripheral vascular Intervention, Angioplasty, Angioplasty Fem/Pop 14:09:58 Procedure and supply charges have been captured, reviewed, submitted and are correct. 14:10:00 Procedure Complication : No complications 14:10:04 Vital chart was stopped 14:10:06 See physician's report for complete and final results. 14:10:08 Report given to Pre/Post Procedure Room. 14:10:10 Patient transfered to Pre/Post Procedure Room with Bed. 14:10:13 Procedure ended. 14:10:13 Full Disclosure recording stopped 14:10:20 End room use (Document Last) 14:11:39 Plavix 600 mg P.O. was administered by Waqar Khan RN; for antiplatelet therapy; Intervention Summary Intervention Notes Time ActionType Lesion and Equipment Action# Pressure Duration Attributes Used 13:53:53 Place stent Undefined1 INTEGRITY RX 1 15 00:10 3.5 x 22 stent ([id number]) 14:00:16 Inflate Mid SABER 6.0 X 1 7 00:08 balloon Superficial 2 X 150 Femoral, balloon Right ([id number]) 14:02:00 Deploy self Mid SMART 7 X 20 1 expanding Superficial X 120 stent stent Femoral, ([id number]) Right 14:03:07 Reinflate Mid SABER 6.0 X 2 11 00:10 balloon Superficial 2 X 150 Femoral, balloon Right ([id number]) 14:03:24 Reinflate Mid SABER 6.0 X 3 11 00:10 balloon Superficial 2 X 150 Femoral, balloon Right ([id number]) Device Usage Item Name Manufacture Quantity Catalog Number Hospital Part Current Mini mal Lot# / Charge Number Stock Stock Serial# Code ACIST Acist 1 83116 383890 814097 187297 20 Syringe Medical (15826) Systems Inc Bag Decanter Microtek 1 2001S 242398 16909 270770 5 (2001S) Medical Inc. ACIST Hand Acist 1 73728 634691 395363 587664 5 Control Medical (34366) Systems Inc ACIST Acist 1 02061 138932 477219 715803 5 Manifold Medical (78777) Systems Inc Tegaderm 4 x 3M 1 1626W 500155 647314 175943 5 4 (1626W) Medline Cath Medline 1 [id number] 790711 22960 780978 5 Pack ([id number]) DIAGNOSTIC St Krunal 1 228018 057908 678728 485512 30 WIRE .035 260cm J wire (196590) DIAGNOSTIC Cardinal 1 BQ5899 206354 50348 036608 30 Multipack Health 5Fr catheter set (MX1200) SHEATH 5FR Terumo 1 LLB354 828896 343465 995128 5 Platina (DWG614) MULTIPACK Cardinal 1 786287 5 Pigtail 5 Fr Health catheter MULTIPACK JL Cardinal 1 454031 5 4.0 5Fr Health catheter MULTIPACK Cardinal 1 721421 5 3DRC 5Fr Health catheter DIAGNOSTIC Cardinal 1 [id number] 454147 203178 257627 20 AR2 MOD 5 Fr Health catheter (826283Y) SHEATH 6FR Terumo 1 MUM918 475449 423952 573807 40 Platina (WWF956) INFLATOR Merit 1 VX9644 615951 660861 556207 15 [employer] [place] Medical BasixCompak (HF1424) CHOICE PT [place] 1 [id number] 515790 362626 659365 5 Extra Scientific Support 182cm wire ([id number]) SHEATH 6FR Terumo 1 RSR01 583524 68404 685939 5 Destination (RSR01) INTEGRITY RX Medtronic 1 [id number] 546382 262868 963979 5 [id number] 3.5 x 22 stent ([id number]) GLIDE WIRE Terumo 1 WN0303 795674 152648 5 Angled Super Stiff 180cm (BI7442) GUIDE 6FR MB Medtronic 1 LA6MB1 151682 41021 744004 1 1 catheter (LA6MB1) DIAGNOSTIC Cardinal 1 [id number] 662386 528925 880066 5 IM 5Fr Health catheter (315822D) TORQUE [place] 1 TD01 052885 433815 599123 5 DEVICE Scientific PLASTIC .038 ( TD01) CHOICE PT [place] 1 [id number] 538968 498933 009613 5 Extra Scientific Support J 300cm guide wire (4507490Y5) SABER 6.0 X Cardinal 1 [id number] 568873 189214 5 2 X 150 Health balloon ([id number]) SMART 7 X 20 Cardinal 1 [id number] 547627 073006 343547 0 X 120 stent Health ([id number]) EXOSEAL 6Fr Cardinal 1 EX600 844680 064039 679089 10 (EX600) Health Signature Audit [place] Stage Time Signature Unsigned Intra-Procedure 07/27/2018 Radha Ford 2:13:35 PM RT(R) Signatures Monitor : Radha Ford Signature : RT Date : Time : [address] [address]
[~2018-07-27 09:55] MED LIST changes: +LANOXIN125 MCG PO; +LIPITOR10 MG PO; +ULTRAM50 MG PO
[2018-07-27] MEDS ORDERED: HYDROCODON-ACE1 EAC7 (10:22)
[2018-07-27 10:31] VITALS: BP 147/59; Ht 188 cm; Wt 97.7 kg
[2018-07-27 10:33] LABS: BASOPHILS 0.7 % (0-2); HEMATOCRIT 40.5 % (42.0-54.0); HEMOGLOBIN 13.4 g/dL (13.5-17.5); IMMATURE GRANULOCYTES 0.1 % (0-5); LYMPHOCYTES 26.2 % (15-50); MCH 28.9 pg (26.0-34.0); MCHC 33.1 g/dL (31.0-37.0); MCV 87.3 fL (80.0-100.0); MEAN PLATELET VOLUME 10.2 fL (7.4-10.4); MONOCYTES 9.8 % (2-11); NEUTROPHILS 61.2 % (40-80); PLATELET COUNT 312 10x3/uL (130-400); RBC 4.64 10x6/uL (4.20-6.10); RDW 14.1 % (11.5-14.5); WBC 7.1 10x3/uL (4.8-10.8)
[2018-07-27 10:41] LABS: ANION GAP 12.9 mmol/L (8-16); CARBON DIOXIDE 26.4 mmol/L (21.0-32.0); CREATININE - SERUM 1.5 mg/dL (0.6-1.3); POTASSIUM - SERUM 4.3 mmol/L (3.5-5.1)
[2018-07-27] MEDS ORDERED: PLAVIX75 MG PO (14:25)
--- NOTE | 2018-07-27 14:45 | NUR ---
PATIENT INTERMITTENTLY RESTING, VSS ON 2L NC. TOLERATING PO FLUIDS. LEFT GROIN DRESSING IS CDI, NO S/S OF BLEEDING OR HEMATOMA. NO C/O PAIN, NUMBNESS, OR TINGLING. FAMILY AT BEDSIDE.
--- NOTE | 2018-07-27 15:15 | NUR ---
PATIENT RESTING, VSS ON 2L NC. LEFT GROIN DRESSING IS CDI, NO S/S OF BLEEDING OR HEMATOMA. PHYSICIAN AT BEDSIDE TO UPDATE PATIENT AND FAMILY. NO C/O PAIN, NUMBNESS, OR TINGLING.
--- NOTE | 2018-07-27 15:45 | NUR ---
PATIENT VOIDED PER URINAL WITHOUT DIFFICULTY. VSS ON 1L NC. LEFT GROIN DRESSING IS CDI, NO S/S OF BLEEDING OR HEMATOMA. NO C/O PAIN. NO N/V.
--- NOTE | 2018-07-27 16:15 | NUR ---
PATIENT AWAKE, VSS ON ROOM AIR. LEFT GROIN DRESSING IS CDI, NO S/S OF BLEEDING OR HEMATOMA. NO C/O PAIN, NUMBNESS, OR TINGLING. FAMILY AT BEDSIDE.
--- NOTE | 2018-07-27 16:45 | NUR ---
PATIENT AWAKE, VSS ON ROOM AIR. FAMILY PRESENT AT BEDSIDE. HEAD OF BED AT 30 DEGREES. LEFT GROIN DRESSING IS CDI, NO S/S OF BLEEDING OR HEMATOMA. NO C/O PAIN, NUMBNESS, OR TINGLING. PATIENT DRINKING WATER AND EATING CRACKERS. NO N/V.
--- NOTE | 2018-07-27 17:15 | NUR ---
PATIENT AWAKE, HEAD OF BED AT 30 DEGREES. LEFT GROIN DRESSING IS CDI, NO S/S OF BLEEDING OR HEMATOMA. NO C/O PAIN, NUMBNESS, OR TINGLING. PATIENT EATING CRACKERS AND DRINKING WATER, NO N/V. VSS ON ROOM AIR.
--- NOTE | 2018-07-27 17:45 | NUR ---
HEAD OF BED AT 90 DEGREES, LEFT GROIN DRESSING IS CDI, NO S/S OF BLEEDING OR HEMATOMA. NO C/O PAIN, NUMBNESS, OR TINGLING. IV REMOVED. EDUCATION REGARDING DISCHARGE INSTRUCTIONS AND MEDICATION COMPLIANCE GIVEN TO PATIENT AND FAMILY, PATIENT VOICES UNDERSTANDING. VSS ON RA.
[2018-07-27] MEDS ORDERED: LIPITOR20 MG PO (17:46)
--- NOTE | 2018-07-27 17:55 | NUR ---
PATIENT TRANSPORTED VIA WHEELCHAIR TO CAR WITH FAMILY DRIVING, ALL BELONGINGS WITH PATIENT.
== END 2018-07-27 17:55 ==
LOC: D.CATH 09:55
PROVIDERS: ATTEND Internal Medicine Interventional Cardiology
DX: I25.110 Atherosclerotic heart disease of native coronary artery with unstable angina pectoris (principal); I70.219 Atherosclerosis of native arteries of extremities with intermittent claudication, unspecified extremity; I73.9 Peripheral vascular disease, unspecified

== ENCOUNTER 2018-08-24 07:33 | Outpatient (CLI) | payer OTHER ==
[~2018-08-24] VITALS: Ht 188 cm; Wt 100.0 kg
--- NOTE | ~2018-08-24 | HEMODYNAMI ---
PATIENT:RACHELL MEYER MEDICAL RECORD: [id number] : 57 LOCATION:[place] ADMISSION DATE: 08/24/18 Generatedon:08/24/201810:12 Patient name: RACHELL MEYER Patient #: [id number] SSN: : 1955 Date of study: 08/24/2018 Page: Of Hemodynamic Procedure Report Patient Data Patient Demographics Procedure consent was obtained First Name: RACHELL Gender: Male Last Name: BETSY : 1955 Middle Initial: JAYCOB Age: 63 year(s) Patient #: [id number] Race: Unknown Additional ID: [id number] Contact details Address: [address] [place] [address] [place] State: [place] City: [facility] Zip code: [address] Past Medical History Allergies Allergen Reaction Date Comments Reported Other allergy 12/22/2017 crestor Other allergy 07/27/2018 CRESTOR Other allergy 08/24/2018 CRESTOR Admission Admission Data Admission Date: 08/24/2018 Admission Time: 7:33 Height (in.): 74 BSA: 2.26 (m2) Height (cm.): 187.96 BMI: 28.31 (kg/m2) Weight (lbs.): 220.46 Weight (kg.): 100 Lab Results Lab Result Date: 08/24/2018 Lab Result Time: 0:00 Biochemistry Name Units Result Min Max BUN mg/dl 24 --(----)-* 7 18 Creatinine mg/dl 1.6 --(----)-* 0.6 1.3 CBC Name Units Result Min Max Hematocrit % 38 *-(----)-- 42 54 Hemoglobin g/dl 12.9 -*(----)-- 13.5 17.5 Procedure Procedure Types Cath Procedure Peripheral vascular Intervention Stent Stent-Fem/Popw/plasty Procedure Description Procedure Date Procedure Date: 08/24/2018 Procedure Start Time: 9:53 Procedure End Time: 10:09 Procedure Staff Name Function Umberto Ramey MD Performing Physician Radha Ford RT Monitor Waqar Khan RN Nurse Alban Becerra RT Scrub Procedure Data Cath Procedure Fluoroscopy Diagnostic fluoroscopy Total fluoroscopy Time: 4.9 time: 4.9 min min Diagnostic fluoroscopy Total fluoroscopy dose: 190 dose: 190 mGy mGy Contrast Material Contrast Material Type Amount (ml) Isovue 300 59 Entry Location Entry Primary Successful Side Size Upsize Upsize Entry Closure Succes sful Closure Location (Fr) 1 (Fr) 2 (Fr) Remarks Device Remarks Femoral Right 6 Fr 6 Fr artery Short Long Estimated blood loss: 10 ml Diagnostic catheters Device Type Used For End Catheter Placement DIAGNOSTIC IMT 5Fr Procedure Catheter ([id number]) Procedure Complications No complications Procedure Medications Medication Administration Route Dosage Oxygen etCO2 Nasal cannula 2 l/min Plavix P.O. 75 mg Heparin Flush Bag added to field 2 bags (1000units/500ml NS) 0.9% NaCl I.V. 100 ml/hr Lidocaine 2% added to field 20 Fentanyl I.V. 50 mcg Versed I.V. 1 mg Fentanyl I.V. 50 mcg Versed I.V. 1 mg Fentanyl I.V. 50 mcg Versed I.V. 1 mg Fentanyl I.V. 50 mcg Versed I.V. 1 mg Fentanyl I.V. 50 mcg Heparin Bolus I.V. 4000 units Fentanyl I.V. 50 mcg Hemodynamics Rest BSA: 2.26 (m2) HGB: 12.9 (g/dl) O2 Consumption: Estimated: 255.36 (ml/min) O2 Co nsumption indexed: Estimated:112.99 (ml/min/m) Heart Rate: 59 (bpm) Snapshots Pre Cath Intra NCS Post Cath Vital Signs Time Heart Resp SPO2 etCO2 NIBP (mmHg) Rhythm Pain Sedation Rate (ipm) (%) (mmHg) Status Level (bpm) 9:28:32 60 16 99 26.2 134/78(103) NSR 0 (11) 10(A) , No pain 9:32:44 62 17 100 32.2 114/66(92) NSR 0 (11) 10(A) , No pain 9:36:50 63 17 100 30.7 116/61(95) NSR 0 (11) 10(A) , No pain 9:40:57 65 17 97 32.9 108/60(77) NSR 0 (11) 10(A) , No pain 9:45:01 71 17 98 33.7 112/63(82) NSR 0 (11) 10(A) , No pain 9:49:46 69 16 97 17.2 89/57(69) NSR 0 (11) 9(A) , No pain 9:53:43 68 16 98 32.2 103/60(82) NSR 0 (11) 9(A) , No pain 9:57:47 69 16 98 33.7 113/57(84) NSR 0 (11) 9(A) , No pain 10:01:53 72 17 98 17.9 103/63(81) NSR 0 (11) 9(A) , No pain 10:05:52 74 17 98 17.2 110/66(85) NSR 0 (11) 9(A) , No pain 10:07:43 71 17 98 27.7 110/60(88) NSR 0 (11) 9(A) , No pain Medications Time Medication Route Dose Verified Delivered Reason Notes Effectiveness by by 9:29:00 Oxygen etCO2 2 Umberto Waqar Per physician Nasal l/min Tanvir Khan RN cannula 9:29:07 Plavix P.O. 75 mg Umbertomaciel Christiansony for Tanvir Khan RN antiplatelet therapy 9:29:15 Heparin Flush added 2 Umberto Waqar used for Bag to bags Tanvir Khan RN procedure (1000units/500ml field NS) 9:29:24 0.9% NaCl I.V. 100 Umbertomaciel Christiansony Per physician ml/hr Tanvir Khan RN 9:29:32 Lidocaine 2% added 20ml Umbertomaciel Christiansony used for to vial Tanvir Khan RN procedure field 9:44:57 Fentanyl I.V. 50 Umberto Waqar for sedation mcg Tanvir Khan RN 9:45:06 Versed I.V. 1 mg Umberto Waqar for sedation Tanvir Khan RN 9:47:51 Fentanyl I.V. 50 Umberto Waqar for sedation mcg Tanvir Khan RN 9:47:55 Versed I.V. 1 mg Umberto Waqar for sedation Tanvir Khan RN 9:50:20 Fentanyl I.V. 50 Umberto Waqar for sedation mcg Tanvir Khan RN 9:50:23 Versed I.V. 1 mg Umberto Zavaleta for sedation Tanvir Khan RN 9:52:33 Fentanyl I.V. 50 Umberto Zavaleta for sedation mcg Tanvir Khan RN 9:52:36 Versed I.V. 1 mg Umberto Zavaleta for sedation Tanvir Khan RN 9:56:01 Fentanyl I.V. 50 Umberto Zavaleta for sedation [facility] Tanvir Khan RN 9:56:10 Heparin Bolus I.V. 4000 Umberto Zavaleta for units Tanvir Khan RN anticoagulation 9:59:13 Fentanyl I.V. 50 Umberto Zavaleta for sedation [facility] Tanvir Khan dba developer Log Time Note 8:59:07 Alban Becerra RT(R) sent for patient. Start room use. 8:59:08 Time tracking: Regular hours (M-F 7:00 - 5:00) 8:59:12 Plan of Care:Hemodynamics will remain stable., Cardiac rhythm will remain stable., Comfort level will be maintained., Respiratory function will remain adequate., Patient/ family verbilizes understanding of procedure., Procedure tolerated without complication., Recovers from procedure without complications.. 9:09:44 Signed procedure consent form obtained from patient. 9:09:47 Diagnostic Cath status Elective 9:11:49 Patient allergic to Other allergyCRESTOR 9:12:27 Lab Result : BUN 24 mg/dl 9:12:27 Lab Result : Hemoglobin 12.9 g/dl 9:12:27 Lab Result : Creatinine 1.6 mg/dl 9:12:27 Lab Result : Hematocrit 38 % 9:12:36 Patient Weight : 220.46 lbs 9:12:41 Patient Height : 74 inches 9:21:37 Patient received from Pre/Post Procedure Room to CCL 2 Alert and oriented. Tansferred to table in Supine position. 9:21:38 Warm blankets applied, and parth hugger turned on for patient comfort. 9:21:39 Correct patient and procedure confirmed by team. 9:21:39 ECG and BP/O2 sat monitors applied to patient. 9:27:21 Vital chart was started 9:29:00 Oxygen 2 l/min etCO2 Nasal cannula was administered by Waqar Khan RN; Per physician; 9:29:07 Plavix 75 mg P.O. was administered by Waqar Khan RN; for antiplatelet therapy; 9:29:11 Baseline sample Acquired. 9:29:15 Heparin Flush Bag (1000units/500ml NS) 2 bags added to field was administered by Waqar Khan RN; used for procedure; 9::15 Rhythm: sinus bradycardia 9:29:15 Full Disclosure recording started 9:29:19 H&P Date Dictated: 08/24/2018 New H&P dictated by physician.. 9:29:20 Pre-procedure instructions explained to patient. 9:29:20 Pre-op teaching completed and patient verbalized understanding. 9:29:22 Family in patients room. 9::24 0.9% NaCl 100 ml/hr I.V. was administered by Waqar Khan RN; Per physician; 9:29:28 Patient NPO since Midnight. 9:29:31 Is patient on blood thinner?Yes 9:29:32 Lidocaine 2% 20ml vial added to field was administered by Waqar Khan RN; used for procedure; 9:29:34 ACC The patient was administered the following blood thiners within the last 24 hours: ACCPlavix 9:29:35 Patient diabetic? No. 9:29:43 Previous problem with sedation/anesthesia? No ? 9:29:44 Snore? Yes 9:29:53 POSSIBLE SLEEP APNEA 9:30:04 Deviated septum? No 9:30:05 Opens mouth fully? Yes 9:30:05 Sticks out tongue? Yes 9:30:07 Airway obstruction? No ? 9:30:11 Dentures? No ? 9:30:14 Pre procedure: right dorsailis pedis pulse 2+ Normal; easily identifiable; not easily obliterated 9:30:17 Pre procedure: left dorsailis pedis pulse 1+ Palpable, but thready & weak; easily obliterated 9:30:20 Patient pain scale 0/10 ?. 9:30:26 IV patent on arrival in left hand with 0.9% NaCl at [facility]. 9:30:27 Lab results completed and on chart. 9:30:29 Right groin area was prepped with chlora-prep and draped in sterile fashion 9:30:30 Alarms reviewed by REmilee N. 9:30:30 Sharps counted by scrub and verified by R.N. 9:30:40 Use device set CATH PACK 9:30:41 ACIST Syringe ([id number]) opened to sterile field. 9:30:42 ACIST Hand Control (23516) opened to sterile field. 9:30:42 ACIST Manifold (89127) opened to sterile field. 9:30:42 Medline Cath Pack ([id number]) opened to sterile field. 9:30:43 Bag Decanter (2002S) opened to sterile field. 9:30:43 DIAGNOSTIC WIRE .035 260cm J wire ([id number]) opened to sterile field. 9:31:15 SHEATH 6FR Destination (RSR01) opened to sterile field. 9:31:16 INFLATOR Merit BasixCompak (YO1774) opened to sterile field. 9:31:16 SHEATH 6FR Ralston (DBN886) opened to sterile field. 9:31:17 GLIDE WIRE Super Stiff Angled 260cm (WO5718) opened to sterile field. 9:42:56 Zero performed for pressure channel P1 9:44:35 --------ALL STOP TIME OUT------ 9:44:35 Final Timeout: patient, procedure, and site verified with staff and physician. All members of the team are in agreement. 9:44:36 Right groin site verified by team. 9:44:39 Maximum allowable Isovue 300 dose 300ml. Physician notified. (300ml for normal creatinines. For patients with creatinine of 1.7 or higher multiply weight(kg) x 5 divided by creatinine.) 9:44:43 Fire Safety Assessment: A--An alcohol-based skin anteseptic being used preoperatively., C--Open oxygen or nitrous oxide is being used., D--An ESU, laser, or fiber-optic light is being used. 9:44:46 Physical assessment completed. ASA score P 2 - A patient with mild systemic disease as per Umberto Ramey MD. 9:44:48 Sedation plan: IV Moderate Sedation Medication:Versed, Fentanyl 9:44:57 Fentanyl 50 mcg I.V. was administered by Waqar Khan RN; for sedation; 9:45:06 Versed 1 mg I.V. was administered by Waqar Khan RN; for sedation; 9:47:51 Fentanyl 50 mcg I.V. was administered by Waqar Khan RN; for sedation; 9:47:55 Versed 1 mg I.V. was administered by Waqar Khan RN; for sedation; 9:50:20 Fentanyl 50 mcg I.V. was administered by Waqar Khan RN; for sedation; 9:50:23 Versed 1 mg I.V. was administered by Waqar Khan RN; for sedation; 9:52:33 Fentanyl 50 mcg I.V. was administered by Waqar Khan RN; for sedation; 9:52:36 Versed 1 mg I.V. was administered by Waqar Khan RN; for sedation; 9:53:06 Procedure started. 9:53:11 Local anesthetic to right femoral artery with Lidocaine 2% by Umberto Ramey MD.INITIAL ACCESS ONLY 9:54:02 A 6 Fr Short sheath was inserted into the Right Femoral artery 9:54:15 A DIAGNOSTIC IMT 5Fr Catheter ([id number]) was advanced over the wire and used for Procedure. 9:54:38 IMT CATHETER ADVANCED WITH THE GLIDE WIRE 9:55:47 WIRE ADVANCED AROUND THE HORN 9:55:49 Catheter exchanged over wire. 9:56:01 Fentanyl 50 mcg I.V. was administered by Waqar Khan RN; for sedation; 9:56:10 Heparin Bolus 4000 units I.V. was administered by Waqar Khan RN; for anticoagulation; 9:56:10 Sheath upsized to a 6 Fr Long. 9:56:34 LONG SHEATH ADVANCED AROUND HORN 9:58:05 GLIDE WIRE ADVANCED ACROSS LESION 9:59:13 Fentanyl 50 mcg I.V. was administered by Waqar Khan RN; for sedation; 9:59:25 Inflate balloon Inflation number: 1 A POWERFLEX PRO 6.0 x 40 x 135cm balloon ([id number]) was prepped and advanced across the Mid Femoral, Left, then inflated to 11 ERICA for 0:10 (min:sec). 9:59:52 Balloon removed over the wire. 10:01:00 SMART 7 X 60 X 120 stent ([id number]) was deployed across Mid Femoral, Left . 10:01:05 Stent catheter was removed intact over wire. 10:01:54 Inflation number: 2 The POWERFLEX PRO 6.0 x 40 x 135cm balloon ([id number]) was reinflated across the Mid Femoral, Left, to 13 ERICA for 0:10 (min:sec). 10:02:13 Inflation number: 3 The POWERFLEX PRO 6.0 x 40 x 135cm balloon ([id number]) was reinflated across the Mid Femoral, Left, to 13 ERICA for 0:10 (min:sec). 10:02:30 Inflation number: 4 The POWERFLEX PRO 6.0 x 40 x 135cm balloon ([id number]) was reinflated across the Mid Femoral, Left, to 13 ERICA for 0:10 (min:sec). 10:02:56 Inflation number: 5 The POWERFLEX PRO 6.0 x 40 x 135cm balloon ([id number]) was reinflated across the Mid Femoral, Left, to 7 ERICA for 0:10 (min:sec). 10:03:11 Balloon removed over the wire. 10:04:57 LONG SHEATH EXCHANGED FOR SHORT SHEATH 10:05:05 EXOSEAL 6Fr (EX600) opened to sterile field. 10:05:30 Procedure ended.(Physican Out) 10:07:04 Fluoroscopy time 04.90 minutes. 10:07:08 Flurop Dose total: 190 10:07:08 Fluoroscopy dose: 190 mGy 10:07:13 Contrast amount:Isovue 300 59ml. 10:07:14 Sharps counted by scrub and verified by R.N. 10:07:17 Post-op/insertion site Right Femoral artery dressed using a 4 x 4 and Tegaderm. 10:07:20 Post-procedure physical assessment completed. ASA score P 2 - A patient with mild systemic disease as per Umberto Ramey MD. 10:07:23 Post procedure rhythm: sinus rhythm 10:07:25 Estimated blood loss: 10 ml 10:07:26 Post procedure instruction explained to patient.Patient verbalizes understanding. 10:07:26 Patient needs reinforcement of post procedure teaching. 10:08:56 Procedure and supply charges have been captured, reviewed, submitted and are correct. 10:08:59 Procedure Complication : No complications 10:09:01 Vital chart was stopped 10:09:01 See physician's report for complete and final results. 10:09:03 Report given to Pre/Post Procedure Room. 10:09:05 Patient transfered to Pre/Post Procedure Room with Bed. 10:09:06 Procedure ended. 10:09:06 Full Disclosure recording stopped 10:09:10 End room use (Document Last) Intervention Summary Intervention Notes Time ActionType Lesion and Equipment Action# Pressure Duration Attributes Used 9:59:25 Inflate Mid POWERFLEX 1 11 00:10 balloon Femoral, PRO 6.0 x Left 40 x 135cm balloon ([id number]) 10:01:00 Deploy self Mid SMART 7 X 1 expanding Femoral, 60 X 120 stent Left stent ([id number]) 10:01:54 Reinflate Mid POWERFLEX 2 13 00:10 balloon Femoral, PRO 6.0 x Left 40 x 135cm balloon ([id number]) 10:02:13 Reinflate Mid POWERFLEX 3 13 00:10 balloon Femoral, PRO 6.0 x Left 40 x 135cm balloon ([id number]) 10:02:30 Reinflate Mid POWERFLEX 4 13 00:10 balloon Femoral, PRO 6.0 x Left 40 x 135cm balloon ([id number]) 10:02:56 Reinflate Mid POWERFLEX 5 7 00:10 balloon Femoral, PRO 6.0 x Left 40 x 135cm balloon ([id number]) Device Usage Item Name Manufacture Quantity Catalog Number Hospital Part Current Minim al Lot# / Charge Number Stock Stock Serial# Code ACIST Acist 1 49887 668935 761111 410903 20 Syringe Medical (27164) Systems Inc ACIST Hand Acist 1 38289 763288 395746 306230 5 Control Medical (23421) Systems Inc ACIST Acist 1 58787 721210 207661 116862 5 Manifold Medical (25300) Systems Inc Medline Medline 1 [id number] 866949 77571 719702 5 Cath Pack ([id number]) Bag Microtek 1 432404 01089 983317 5 Decanter Medical Inc. () DIAGNOSTIC St Krun[place] 1 858706 787926 368146 264960 30 WIRE .035 260cm J wire (270784) SHEATH 6FR Terumo 1 RSR01 297993 16370 360683 5 Destination (RSR01) INFLATOR Merit 1 JG7981 024164 094136 277127 15 Merit Medical BasixCompak (YB0549) SHEATH 6FR Terumo 1 HCS286 529262 579499 934540 40 Ralston (BHZ022) GLIDE WIRE Terumo 1 YI0673 807267 779157 500980 5 Super Stiff Angled 260cm (UT6576) DIAGNOSTIC [place] 1 [id number] 220218 098800 18001 5 IMT 5Fr Scientific Catheter ([id number]) POWERFLEX Cardinal 1 [id number] 953427 132372 762276 5 PRO 6.0 x Health 40 x 135cm balloon ([id number]) SMART 7 X Cardinal 1 [id number] 445462 873822 830771 0 60 X 120 Health stent ([id number]) EXOSEAL 6Fr Cardinal 1 EX600 532884 846965 653259 10 (EX600) Health Signature Audit [place] Stage Time Signature Unsigned Intra-Procedure 08/24/2018 Radha Ford 10:12:05 AM RT(R) Signatures Monitor : Radha Ford Signature : RT Date : Time : [address] [address]
[~2018-08-24 07:33] MED LIST changes: +HYDROCODON-ACE1 EAC7; +LIPITOR20 MG PO
[2018-08-24] MEDS ORDERED: LISINOPRIL20 MG PO (07:48)
[2018-08-24 07:55] VITALS: BP 144/61; Ht 188 cm; Wt 100.0 kg
[2018-08-24 08:09] LABS: HEMOGLOBIN 12.9 g/dL (13.5-17.5); LYMPHOCYTES 32.2 % (15-50); MCH 29.3 pg (26.0-34.0); MCHC 33.9 g/dL (31.0-37.0); MCV 86.2 fL (80.0-100.0); MEAN PLATELET VOLUME 9.5 fL (7.4-10.4); NEUTROPHILS 53.2 % (40-80); PLATELET COUNT 275 10x3/uL (130-400); RBC 4.41 10x6/uL (4.20-6.10); RDW 13.9 % (11.5-14.5); WBC 5.2 10x3/uL (4.8-10.8)
[2018-08-24 08:43] LABS: ANION GAP 16.3 mmol/L (8-16); CALCIUM 8.7 mg/dL (8.5-10.1); CARBON DIOXIDE 23.8 mmol/L (21.0-32.0); CREATININE - SERUM 1.6 mg/dL (0.6-1.3); POTASSIUM - SERUM 4.1 mmol/L (3.5-5.1)
--- NOTE | 2018-08-24 10:31 | NUR ---
DRESSING CDI, PEDAL PULSES PALPABLE. RESP WITH EASE ON O2 AT 2LPM VIA NC. VSS. DR DURAN HAS ROUNDED. IV PATENT AND INFUSING PER ORDERS. AT BEDSIDE, CALL LIGHT IN REACH.
--- NOTE | 2018-08-24 10:47 | NUR ---
PT SLEEPING, RESP WTIH EASE ON O2 AT 2LPM VIA NC. DRESSING CDI, PEDAL PULSES PALPABLE, BILAT. HOB IS FLAT. VSS. CALL LIGHT IN REACH.
--- NOTE | 2018-08-24 11:31 | NUR ---
PT SLEEPING, RESP WITH EASE, DRESSING CDI TO RIGHT GROIN, PEDAL PULSES PALPABLE, VSS. CALL LIGHT IN REACH.
--- NOTE | 2018-08-24 12:18 | NUR ---
PT AWAKE, DENIES ANY C/O PAIN OR NAUSEA. PO FLUIDS AND APPLESAUCE SERVED. HOB IS FLAT, DRESSING IS CDI, PEDAL PULSES PALPABLE. VSS, CALL LIGHT IN REACH.
--- NOTE | 2018-08-24 12:42 | NUR ---
PT ALERT, ELVIS PO FLUIDS AND APPLESAUCE WITH NO NAUSEA. DRESSING CDI, PEDAL PULSES 2+ BILAT. VSS. RESP WITH EASE. HOB IS FLAT, CALL LIGHT IN REACH. PT HAS VOIDED 600 CC CLEAR YELLOW URINE TO URINAL.
--- NOTE | 2018-08-24 13:27 | NUR ---
DRESSING CDI, PEDAL PULSES PALPABLE BILAT. HOB ELEVATED AND SANDWICH SERVED. PT DENIES NEEDS AT THIS TIME.
--- NOTE | 2018-08-24 13:42 | NUR ---
DRESSING REMAINS CDI TO RIGHT GROIN, AREA IS SOFT AND NONTENDER. PEDAL PULSES PALPABLE. VSS. PIV DC'D WITH CATH INTACT. DC INSTRUCTIONS REVIEWED WITH PT AND WHO VERBALIZE UNDERSTANDING.
--- NOTE | 2018-08-24 14:04 | NUR ---
PT HAS DRESSED FOR DC TO HOME. IS ALERT AND DENIES ANY C/O. PT ESCORTED TO PRIVATE AUTO VIA WC BY NURSE WITH DRIVING HIM HOME. PT HAS ALL PERSONAL BELONGINGS AND DC INSTRUCTIONS AT TIME OF DC.
--- NOTE | 2018-08-24 15:13 | OP ---
PATIENT NAME: RACHELL MEYER MEDICAL RECORD: [id number] :57 LOCATION:D.CAT ADMISSION DATE: SURGEON: YADIEL DURAN MD DATE OF OPERATION: 08/24/2018 PROCEDURES: 1. Stent placement SFA, left. 2. CUSTOMS COLLECTOR SFA, left. 3. Unilateral extremity angiography. INDICATION: Claudication and peripheral vascular disease. PROCEDURE IN DETAIL: After informed consent was obtained and after a detailed description of risks, benefits as well as alternative therapies, the patient elected to proceed with angiogram and angioplasty. The right femoral area was prepped and draped in normal sterile fashion. Right femoral artery was cannulated via modified Seldinger technique with placement of a 6-Citizen Of [place] zuujpa-flr-pmld sheath. All catheters exchanged through this sheath. FINDINGS: The SFA of the left has 80% stenosis in the proximal mid vessel. This was addressed with a 6.0 balloon yielding suboptimal results of severe intimal dissection. Stenting was undertaken with a 7 x 60 SMART stent. Result was 0% residual stenosis. OVERALL IMPRESSION: Successful percutaneous transluminal angioplasty stent of the left superficial femoral artery going from 80% initial stenosis to 0% residual. TRANSINT:[id number] Voice Confirmation ID: [id number] DOCUMENT ID: [id number] YADIEL DURAN MD at 1513 CC: [id number] DICTATION DATE: 08/24/18 1009 UTILITY TECH: 08/24/18 1218 DEP CLI 08/24/18 [place] [id number]
--- NOTE | 2018-08-24 15:13 | HP ---
PATIENT: RACHELL VIVAS MEDICAL RECORD: [id number] ACCOUNT: [id number] LOCATION:[place] : 57 ADMISSION DATE: 08/24/18 PCP: HAFSA MARTINEZ DO HISTORY AND PHYSICAL EXAMINATION DIAGNOSES: 1. Claudication. 2. Peripheral vascular disease. 3. Coronary artery disease. 4. Hypertension. 5. Hyperlipidemia. HISTORY OF PRESENT ILLNESS: Mr. Vivas has left leg claudication. He has significant stenosis of the SFA on the left leg. He is now brought for transcatheter revascularization of this territory. PHYSICAL EXAMINATION: GENERAL APPEARANCE: Well-nourished, well-developed, appears stated age. Level of distress, comfortable. PSYCHIATRIC: Mental status, alert, normal affect. Orientation, oriented to time, place and person. EYES: Lids and conjunctiva, noninjected. No discharge, no pallor. ENT: Lips, teeth, gums, normal dentition. Oropharynx, no cyanosis, no pallor. NECK: Carotid arteries, bilateral normal upstroke, no bruits, no thrills. JUGULAR VEINS: No jugular venous pressure or distention. CERVICAL LYMPH NODES: Nontender, nonenlarged. THYROID: Not enlarged. Nontender. No nodules. LUNGS: Respiratory effort, unlabored. CHEST: Normal curvature. No thoracic deformity. No chest wall tenderness. Percussion, resonant. Auscultation, clear. No wheezes, no rales, no rhonchi. CARDIOVASCULAR: Precordial exam, nondisplaced. No heaves or pericardial thrills. Rate and rhythm, regular. Heart sounds, normal S1, normal S2. No S3, no gallop, no rub. Systolic murmur, not heard. Diastolic murmur, not heard. EXTREMITIES: No cyanosis, no edema. Peripheral pulses, full and equal in all extremities, except as noted. No bruits appreciated. ABDOMEN: Soft, nondistended. Normal aorta. No bruit. Nontender. No masses. Liver, nontender, no hepatomegaly. Spleen, nontender, no splenomegaly. MUSCULOSKELETAL: No joint tenderness. No joint swelling. No erythema. NEUROLOGICAL: Normal gait, normal strength, normal tone. SKIN: Warm and dry. OVERALL IMPRESSION: Claudication symptomatology with significant disease of the SFA. We will proceed with SFA transcatheter revascularization. TRANSINT:[id number] Voice Confirmation ID: [id number] DOCUMENT ID: [id number] HISTORY AND PHYSICAL [id number] RACHELL VIVAS JEFFREY MD at 1513 CC: [id number] DICTATION DATE: 08/24/1850 MIXER LEVER OPERATOR: 08/24/18 1201 DEP CLI 08/24/18 [place] [id number] [place] [id number]
== END 2018-08-24 14:00 | disposition home or self-care (01) ==
LOC: D.CATH 07:33
PROVIDERS: ATTEND Internal Medicine Interventional Cardiology
DX: I70.213 Atherosclerosis of native arteries of extremities with intermittent claudication, bilateral legs (principal); I25.10 Atherosclerotic heart disease of native coronary artery without angina pectoris; I10 Essential (primary) hypertension; E78.5 Hyperlipidemia, unspecified; Z01.812 Encounter for preprocedural laboratory examination

== ENCOUNTER → 2018-11-14 08:54 | Outpatient (CLI) | payer OTHER ==
[2018-08-24 07:55] VITALS: BMI 28.3
[~2018-11-14 08:54] MED LIST changes: +LISINOPRIL20 MG PO
== END | disposition home or self-care (01) ==
LOC: D.US 11-13 07:30
PROVIDERS: ATTEND Family Medicine
DX: R10.11 Right upper quadrant pain (principal)

== ENCOUNTER → 2019-03-05 09:44 | Outpatient (CLI) | payer OTHER ==
[2018-08-24 07:55] VITALS: BMI 28.3
[~2019-03-05 09:44] MED LIST changes: +AMOX TR-K CLV 21 TAB PO; +HYDROCODON-ACE1 EA10 PO; +ISOSORBIDE MONO60 M1 PO; +NITROSTAT0.4 MG SL
--- NOTE | 2019-03-12 11:41 | EC ---
PATIENT:RACHELL MEYER DATE OF SERVICE: 03/05/19 SEX: M MEDICAL RECORD: [id number] DATE OF : 57 LOCATION:[facility] AGE OF PATIENT: 64 ADMISSION DATE: 03/05/19 REFERRING PHYSICIAN: INTERPRETING PHYSICIAN: YADIEL RAMEY MD ECHOCARDIOGRAM REPORT ECHO CHARGES 4 ECHO COMPLETE Date: 03/05/19 CLINICAL DIAGNOSIS: CAD ECHOCARDIOGRAPHIC MEASUREMENTS (adult normal given) AC root (d.<3.7cm) 3.9 cm LV Septum d (<1.2 cm> 1.2 cm Valve Excursion 1.7 cm LV Septum (systole) 1.5 cm Left Atria (s.<4.0cm> 4.0 cm LVPW d(<1.2cm) 1.5 cm RV (d.<2.3cm) 3.5 cm LVPW (sytole) 1.9 cm LV diastole(<5.6CM) 5.2 cm MV E-F(>70mm/sec) cm LV systole 3.0 cm LVOT Diameter 1.8 cm MV exc.(>10mm) 1.6 cm Est.ejection fraction (50-75%) % DOPPLER: LVIT cm/sec A 80.0 cm/sec E 73.0 cm/sec LA cm/sec RVSP 15 mmHg LVOT 129 cm/sec AOP1/2T 674 m/s Asc. Ao 144 cm/sec RVOT 88 cm/sec RA cm/sec PA 107 cm/sec AV Gradient Peak 8.33 mmHg AV Mean 4.26 mmHg AV Area 2.4 cm MV Gradient Peak 4.55 mmHg MV Mean 1.67 mmHg MV Area cm COMMENTS: Trouble Operator: 2 WINNIE PIPER Group Therapy Counselor: 1 Dr. Ramey TAPE# PACS Pericardial Effusion N DATE OF SERVICE: PROCEDURE: Echocardiogram. FINDINGS: 1. Left ventricular chamber size is within normal limits. Left ventricular systolic function is normal. Overall ejection fraction estimated at 55%. 2. Left atrium is upper limits of normal at 4.0 cm. Right atrium and right ventricular chamber sizes are within normal limits. 3. Valvular structures have normal structure and motion. ECHOCARDIOGRAM REPORT [id number] RACHELL MEYER 4. Doppler interrogation reveals mild aortic insufficiency. No other valvular insufficiency or stenosis. Pulmonary systolic pressure is estimated at 15 mmHg. 5. No evidence of pericardial effusion or left ventricular thrombus. TRANSINT:[id number] Voice Confirmation ID: [id number] DOCUMENT ID: [id number] YADIEL RAMEY MD at 1141 CC: [id number] DICTATION DATE: 03/06/19 1201 SOLAR PROJECT COORDINATION SPECIALIST: 03/06/19 1206 DEP CLI 03/05/19 [place] [id number] [place] [id number]
== END | disposition home or self-care (01) ==
LOC: D.HCCECHO 09:44 → EDBD 09:44 → D.HCCECHO 10:00 → D.HCCARDIO 03-21 11:00 → D.HCCECHO 03-21 11:00
PROVIDERS: ATTEND Internal Medicine Interventional Cardiology
DX: I10 Essential (primary) hypertension (principal)

== ENCOUNTER 2019-04-19 08:32 | Outpatient (CLI) | payer OTHER ==
[~2019-04-19] VITALS: Ht 188 cm; Wt 104.5 kg
--- NOTE | ~2019-04-19 | HEMODYNAMI ---
PATIENT:RACHELL MEYER MEDICAL RECORD: [id number] : [birth year] LOCATION:[facility] ADMISSION DATE: 04/19/19 Generatedon:04/19/201911:29 Patient name: RACHELL MEYER Patient #: [id number] SSN: [id number] : 01/15/1954 Date of study: 04/19/2019 Page: Of Hemodynamic Procedure Report Patient Data Patient Demographics Procedure consent was obtained First Name: RACHELL Gender: Male Last Name: BETSY : 01/15/1954 [facility] Initial: JAYCOB Age: 65 year(s) Patient #: [id number] Race: Unknown SSN: [id number] Additional ID: [id number] Contact details Address: [address] [place] [address] [place] State: [place] City: [facility] Zip code: [address] Past Medical History Allergies Allergen Reaction Date Comments Reported Other allergy 12/22/2017 crestor Other allergy 07/27/2018 CRESTOR Other allergy 08/24/2018 CRESTOR Other allergy 04/19/2019 rosuvastatin(CRESTOR) Admission Admission Data Admission Date: 04/19/2019 Admission Time: 8:32 Arrival Date: 04/19/2019 Arrival Time: 0:00 Admit Source: Other [facility] #: [id number] Height (in.): 74.02 BSA: 2.31 (m2) Height (cm.): 188 BMI: 29.71 (kg/m2) Weight (lbs.): 231.49 Weight (kg.): 105 Lab Results Lab Result Date: 04/19/2019 Lab Result Time: 0:00 Biochemistry Name Units Result Min Max BUN mg/dl 19 --(----)*- 7 18 Creatinine mg/dl 1.4 --(----)*- 0.6 1.3 eGFR ml/min 54 *-(----)-- 90 120 NONAFRICAN CBC Name Units Result Min Max Hematocrit % 39.4 -*(----)-- 42 54 Hemoglobin g/dl 13 -*(----)-- 13.5 17.5 Procedure Procedure Types Cath Procedure PCI Procedure Hemochron ACT Test Peripheral Cath Diagnostic Procedure Color Paste Mixing Supervisor Peripheral Procedures AFRO (Diagnostic) Peripheral vascular Intervention Atherectomy Atherectomy Fem/Pop w/Plasty Procedure Description Procedure Date Procedure Date: 04/19/2019 Procedure Start Time: 10:55 Procedure End Time: 11:27 Procedure Staff Name Function Umberto Ramey MD Performing Physician Radha Ford RT Monitor January Reich RT Monitor Nikhil Villafuerte RN Nurse Isa Rojas RT Scrub Indication Pulmonary hypertension Procedure Data Cath Procedure Fluoroscopy Diagnostic fluoroscopy Total fluoroscopy Time: 5.9 time: 5.9 min min Diagnostic fluoroscopy Total fluoroscopy dose: 200 dose: 200 mGy mGy Contrast Material Contrast Material Type Amount (ml) Isovue 300 69 Entry Location Entry Primary Successful Side Size Upsize 1 Upsize Entry Closure Kothari ccessful Closure Location (Fr) (Fr) 2 (Fr) Remarks Device Remarks Femoral Right 5 Fr 6 Fr Exoseal artery Mid-Length Estimated blood loss: 10 ml Diagnostic catheters Device Type Used For End Catheter Placement DIAGNOSTIC UF 5Fr Procedure catheter ([id number]) Procedure Complications No complications Procedure Medications Medication Administration Route Dosage 0.9% NaCl I.V. 100 ml/hr Oxygen etCO2 Nasal cannula 2 l/min Heparin Flush Bag added to field 2 bags (1000units/500ml NS) Lidocaine 2% added to field 20 Versed I.V. 2 mg Fentanyl I.V. 100 mcg Heparin Bolus I.V. 4000 units Integrilin (Bolus I.V. 9.5 ml 2mg/ml) Integrilin (Bolus wasted 0.5 ml 2mg/ml) Fentanyl I.V. 50 mcg Fentanyl I.V. 50 mcg Versed I.V. 2 mg Plavix P.O. 600 mg Hemodynamics Rest BSA: 2.31 (m2) HGB: 13 (g/dl) O2 Consumption: Estimated: 272.37 (ml/min) O2 Cons umption indexed: Estimated:117.91 (ml/min/m) Heart Rate: 73 (bpm) Snapshots Pre Cath Intra NCS Post Cath Vital Signs Time Heart Resp SPO2 etCO2 NIBP Rhythm Pain Sedation Rate (ipm) (%) (mmHg) (mmHg) Status Level (bpm) 10:37:56 75 15 97 0 117/69(93) NSR 0 (11) 10(A) , No pain 10:42:12 73 10 100 30.8 121/66(89) NSR 0 (11) 10(A) , No pain 10:46:26 74 13 98 9.7 104/56(72) NSR 0 (11) 10(A) , No pain 10:50:38 72 10 97 19.5 95/57(79) NSR 0 (11) 10(A) , No pain 10:54:49 70 11 98 21.8 103/60(75) NSR 0 (11) 10(A) , No pain 10:59:04 73 12 96 21 94/57(73) NSR 0 (11) 10(A) , No pain 11:03:15 72 10 97 14.2 110/56(78) NSR 0 (11) 10(A) , No pain 11:07:27 73 12 95 24.8 93/50(71) NSR 0 (11) 10(A) , No pain 11:11:39 73 10 94 12.7 100/52(68) NSR 0 (11) 10(A) , No pain 11:15:57 72 11 94 9 97/47(78) NSR 0 (11) 10(A) , No pain 11:20:11 73 15 94 9 107/54(75) NSR 0 (11) 10(A) , No pain 11:24:27 73 11 93 10.5 95/58(75) NSR 0 (11) 10(A) , No pain Medications Time Medication Route Dose Verified Delivered Reason Notes Effectiveness by by 10:41:35 0.9% NaCl I.V. 100 Nikhil Nikhil Per physician ml/hr Christo Villafuerte RN RN 10:41:45 Oxygen etCO2 2 Nikhil Nikhil for low 02 sats Nasal l/min Christo Villafuerte cannula RN RN 10:41:56 Heparin Flush added 2 Nikhil Nikhil used for Bag to bags Christo Villafuerte procedure (1000units/500ml field GOODEN RN NS) 10:42:07 Lidocaine 2% added 20ml Nikhil Nikhil for local to vial Christo Villafuerte anesthetic field GOODEN RN 10:55:39 Versed I.V. 2 mg Nikhil Nikhil for sedation Christo Villafuerte RN RN 10:55:48 Fentanyl I.V. 100 Nikhil Nikhil for sedation mcg Christo Villafuerte RN RN 11:00:50 Versed I.V. 2 mg Nikhil Nikhil for sedation Christo Villafuerte RN RN 11:03:39 Heparin Bolus I.V. 4000 Nikhil Nikhil for units Christo Villafuerte anticoagulation RN RN 11:03:57 Integrilin I.V. 9.5 Nikhil Nikhil for (Bolus 2mg/ml) ml Christo Villafuerte antiplatelet RN RN therapy 11:04:09 Integrilin wasted 0.5 Nikhil Nikhil to sharp's (Bolus 2mg/ml) ml Christo Villafuerte RN RN 11:06:39 Fentanyl I.V. 50 Nikhil Nikhil for sedation mcg Christo Villafuerte RN RN 11:18:14 Fentanyl I.V. 50 Nikhil Nikhil for sedation mcg Christo Villafuerte RN RN 11:24:30 Plavix P.O. 600 Nikhil Nikhil for mg Christo Villafuerte antiplatelet RN RN therapy Procedure Log Time Note 10:25:03 Nikhil Villafuerte RN sent for patient. Start room use. 10:30:26 Informed consent obtained and on chart 10:31:20 Diagnostic Cath Status : Elective 10:31:45 Indication : Pulmonary hypertension 10:31:58 Procedure Status Elective Heart Cath (OP). 10:32:06 Time tracking: Regular hours (M-F 7:00 - 5:00) 10:32:13 Plan of Care:Hemodynamics will remain stable., Cardiac rhythm will remain stable., Comfort level will be maintained., Respiratory function will remain adequate., Patient/ family verbilizes understanding of procedure., Procedure tolerated without complication., Recovers from procedure without complications.. 10:32:22 Patient received from Pre/Post Procedure Room to CCL 1 Alert and oriented. Tansferred to table in Supine position. 10:32:43 Warm blankets applied, and parth hugger turned on for patient comfort. 10:32:45 Correct patient and procedure confirmed by team. 10:32:45 ECG and BP/O2 sat monitors applied to patient. 10:36:47 Vital chart was started 10:36:48 Baseline sample Acquired. 10:36:55 Rhythm: sinus rhythm 10:37:00 Baseline sample Acquired. 10:37:09 Baseline sample Acquired. 10:37:13 Full Disclosure recording started 10:37:13 - 10:37:22 H&P Date Dictated: 04/19/2019 H&P Addendum completed by physician on day of procedure. (MUST COMPLETE FOR ALL OUTPATIENTS), New H&P dictated by physician.. 10:37:23 Pre-procedure instructions explained to patient. 10:37:24 Pre-op teaching completed and patient verbalized understanding. 10:37:27 Family in patients room. 10:37:31 Patient NPO since Midnight. 10:38:01 Patient allergic to Other allergyrosuvastatin(CRESTOR) 10:38:07 Is the patient allergic to Iodine/contrast media? No. 10:38:52 Lab Result : eGFR NONAFRICAN 54 ml/min 10:38:52 Lab Result : Hemoglobin 13 g/dl 10:38:52 Lab Result : BUN 19 mg/dl 10:38:52 Lab Result : Creatinine 1.4 mg/dl 10:38:52 Lab Result : Hematocrit 39.4 % 10:39:05 Was the patient premedicated? Yes 10:39:09 Is patient on blood thinner?No 10:41:35 0.9% NaCl 100 ml/hr I.V. was administered by Nikhil Villafuerte RN; Per physician; Verbal order read back and verified. 10:41:45 Oxygen 2 l/min etCO2 Nasal cannula was administered by Nikhil Villafuerte RN; for low 02 sats; Verbal order read back and verified. 10:41:56 Heparin Flush Bag (1000units/500ml NS) 2 bags added to field was administered by Nikhil Villafuerte RN; used for procedure; Verbal order read back and verified. 10:42:07 Lidocaine 2% 20ml vial added to field was administered by Nikhil Villafuerte RN; for local anesthetic; Verbal order read back and verified. 10:43:07 Patient diabetic? No. 10:43:11 ----Pre-sedation anethsthesia assessment.---- 10:43:16 Previous problem with sedation/anesthesia? No ? 10:43:18 Snore? Yes 10:43:20 Sleep apnea? Yes 10:43:23 Deviated septum? No 10:43:24 Opens mouth fully? Yes 10:43:26 Sticks out tongue? Yes 10:43:35 Airway obstruction? No ? 10:43:40 Dentures? No ? 10:43:45 Pre procedure: right dorsailis pedis pulse 1+ Palpable, but thready & weak; easily obliterated 10:43:51 Pre procedure: left dorsailis pedis pulse 1+ Palpable, but thready & weak; easily obliterated 10:44:00 Patient pain scale 0/10 ?. 10:44:09 IV patent on arrival in left forearm with 0.9% NaCl at [facility]. 10:44:19 Lab results completed and on chart. 10:44:26 Bilateral groins area was prepped with chlora-prep and draped in steril e fashion 10:44:29 Alarms reviewed by R. N. 10:44:30 Sharps counted by scrub and verified by R.N. 10:45:02 Use device set CATH PACK 10:45:04 ACIST Syringe (17071) opened to sterile field. 10:45:05 ACIST Hand Control (78884) opened to sterile field. 10:45:06 ACIST Manifold (81502) opened to sterile field. 10:45:08 Medline Cath Pack ([id number]) opened to sterile field. 10:45:09 Bag Decanter (2002S) opened to sterile field. 10:45:10 EMERALD Guide Wire (502-366) opened to sterile field. 10:45:32 SHEATH 5FR Colony (PIL117) opened to sterile field. 10:45:55 Arrival Date: 04/19/2019 12:00:00 AM 10:45:57 Admit Source: Other 10:46:19 Patient Height : 74.02 inches 10:46:27 Patient Weight : 231.49 lbs 10:47:43 Zero performed for pressure channel P1 10:47:55 Physician arrived 10:47:55 --------ALL STOP TIME OUT------ 10:47:56 Final Timeout: patient, procedure, and site verified with staff and physician. All members of the team are in agreement. 10:47:59 Bilateral groins site verified by team. 10:48:06 Fire Safety Assessment: A--An alcohol-based skin anteseptic being used preoperatively., C--Open oxygen or nitrous oxide is being used., D--An ESU, laser, or fiber-optic light is being used. 10:48:10 Physical assessment completed. ASA score P 2 - A patient with mild systemic disease as per Umberto Ramey MD. 10:48:20 3a) 45-59 Moderately reduced kidney function. 10:48:27 Maximum allowable contrast dose (3.7 X eGFR X 0.75)150 ml. 10:48:33 Sedation plan: IV Moderate Sedation Medication:Versed, Fentanyl 10:54:39 Procedure started. 10:55:11 Local anesthetic to right femoral artery with Lidocaine 2% by Umberto Ramey MD.INITIAL ACCESS ONLY 10:55:39 Versed 2 mg I.V. was administered by Nikhil Villafuerte RN; for sedation; Verbal order read back and verified. 10:55:48 Fentanyl 100 mcg I.V. was administered by Nikhil Villafuerte RN; for sedation; Verbal order read back and verified. 10:55:55 A 5 Fr sheath was inserted into the Right Femoral artery 10:56:05 A DIAGNOSTIC UF 5Fr catheter ([id number]) was advanced over the wire and used for Procedure. 10:56:48 Abdominal angiogram w/ runoff was performed. 10:56:54 Right leg runoff performed. 10:57:07 Left leg runoff performed. 10:58:02 SHEATH 6FR Destination (RSR01) opened to sterile field. 10:58:26 SHEATH 6FR Colony (ZWZ519) opened to sterile field. 10:58:28 GLIDE WIRE Super Stiff Angled 260cm (GU6911) opened to sterile field. 10:59:01 INFLATOR Merit BasixCompak (HK4138) opened to sterile field. 10:59:59 UF USED TO ADVANCE WIRE AROUND HORN. 11:00:26 CATHETER EXCHANGED OVER WIRE. 11:00:46 Sheath upsized to a 6 Fr Mid-Length. 11:00:50 Versed 2 mg I.V. was administered by Nikhil Villafuerte RN; for sedation; Verbal order read back and verified. 11:01:12 DESTINATION SHEATH ADVANCED AROUND HORN. 11:01:27 LASER Turbo-Power 2.0 atherectomy catheter (306751) opened to sterile field. 11:01:46 CHOICE PT Extra Support J 300cm guide wire ([id number]) opened to steril e field. 11:02:06 CHOICE 300 wire advanced. 11:02:09 Wire advanced across lesion. 11:03:39 Heparin Bolus 4000 units I.V. was administered by Nikhil Villafuerte RN; for anticoagulation; Verbal order read back and verified. 11:03:57 Integrilin (Bolus 2mg/ml) 9.5 ml I.V. was administered by Nikhil Villafuerte RN; for antiplatelet therapy; Verbal order read back and verified. 11:04:09 Integrilin (Bolus 2mg/ml) 0.5 ml wasted was administered by Nikhil Villafuerte RN; to sharp's; Verbal order read back and verified. 11:04:49 Laser pass to Left Superficial Femoral with Fluence of 60 and Rate of 40. 11:06:39 Fentanyl 50 mcg I.V. was administered by Nikhil Villafuerte RN; for sedation; Verbal order read back and verified. 11:09:04 Laser catheter removed. 11:09:15 Laser total pulses delivered: 5351 11:09:25 Laser total treatment time: 2 minutes 23 seconds 11:13:18 Inflate balloon Inflation number: 1 A STELLAREX 6 x 40 DE balloon ([id number]) was prepped and advanced across the Mid Superficial Femoral, Left , then inflated to 11 ERICA for 1:59 (min:sec) . 11:15:54 Inflation number: 2 The STELLAREX 6 x 40 DE balloon ([id number]) was reinflated across the Mid Superficial Femoral, Left , to 11 ERICA for 2:06 (min:sec) . 11:16:29 Inflation number: 3 The STELLAREX 6 x 40 DE balloon ([id number]) was reinflated across the Mid Superficial Femoral, Left , to 13 ERICA for 0:04 (min:sec) . 11:16:51 Inflation number: 4 The STELLAREX 6 x 40 DE balloon ([id number]) was reinflated across the Mid Superficial Femoral, Left , to 13 ERICA for 0:00 (min:sec) . 11:17:11 Balloon removed over the wire. 11:18:07 Wire removed. 11:18:14 Fentanyl 50 mcg I.V. was administered by Nikhil Villafuerte RN; for sedation; Verbal order read back and verified. 11:18:40 THE DESTINATION SHEATH IS EXCHANGED FOR THE 6 ARMENIAN SHORT SHEATH. 11:19:20 EXOSEAL 6Fr (EX600) opened to sterile field. 11:19:46 Sheath removed intact; hemostasis achieved with Exoseal to the Right Femoral artery. 11:19:57 Procedure ended.(Physican Out) 11:20:47 Fluoroscopy time 05.90 minutes. 11:20:53 Flurop Dose total: 200 11:20:53 Fluoroscopy dose: 200 mGy 11:21:15 Dose Area Product 26011 mGy/cm. 11:21:45 Contrast amount:Isovue 300 69ml. 11:21:49 Maximum allowable dose exceeded? No. 11:21:51 Sharps counted by scrub and verified by R.N. 11:21:55 Insertion/operative site no bleeding no hematoma. 11:22:02 Post-op/insertion site Right Femoral artery dressed using a 4 x 4 and Tegaderm. 11:22:09 Post right femoral artery:stable 11:22:12 Post Procedure Pulses reassessed and unchanged 11:22:17 Post-procedure physical assessment completed. ASA score P 2 - A patient with mild systemic disease as per Umberto Ramey MD. 11:22:23 Post procedure rhythm: unchanged. 11:22:29 Estimated blood loss: 10 ml 11:22:32 Post procedure instruction explained to patient.Patient verbalizes understanding. 11:22:33 Patient needs reinforcement of post procedure teaching. 11:23:44 Procedure type changed to Cath procedure, PCI procedure, Hemochron ACT Test, Peripheral Cath Diagnostic Procedure, Color Paste Mixing Supervisor Peripheral Procedures, AFRO (Diagnostic), Peripheral vascular Intervention, Atherectomy, Atherectomy Fem/Pop w/Plasty 11:23:56 ACT drawn and resulted at 234 seconds. (normal therapeutic range 180-24 0 seconds). 11:24:24 Procedure and supply charges have been captured, reviewed, submitted an d are correct. 11:24:30 Plavix 600 mg P.O. was administered by Nikhil Villafuerte RN; for antiplatelet therapy; Verbal order read back and verified. 11:27:14 Procedure Complication : No complications 11:27:17 Vital chart was stopped 11:27:28 AFRO Findings: PVD: PASTORAL COUNSELOR performed (see procedure notes) 11:27:47 Operative report dictated upon procedure completion. 11:27:48 See physician's report for complete and final results. 11:27:51 Report given to Pre/Post Procedure Room. 11:27:56 Patient transfered to Pre/Post Procedure Room with Stretcher. 11:27:59 Procedure ended. 11:27:59 Full Disclosure recording stopped 11:28:04 End room use (Document Last) Intervention Summary Intervention Notes Time ActionType Lesion and Equipment Used Action# Pressure Duration Attributes 11:13:18 Inflate Mid STELLAREX 6 x 40 1 11 01:59 balloon Superficial DE balloon Femoral, ([id number]) Left 11:15:54 Reinflate Mid STELLAREX 6 x 40 2 11 02:06 balloon Superficial DE balloon Femoral, ([id number]) Left 11:16:29 Reinflate Mid STELLAREX 6 x 40 3 13 00:04 balloon Superficial DE balloon Femoral, ([id number]) Left 11:16:51 Reinflate Mid STELLAREX 6 x 40 4 13 00:00 balloon Superficial DE balloon Femoral, ([id number]) Left Device Usage Item Name Manufacture Quantity Catalog Number [facility] Part Cu rrent Minimal Lot# / Charge Number Stock Stock Serial# Code ACIST Syringe Acist 1 29026 897013 008638 98 7042 20 (68923) [employer] ACIST Hand Acist 1 20447 115569 356401 98 7473 5 Control (88948) [employer] ACIST Manifold Acist 1 90377 526288 905547 98 7489 5 (57767) [employer] Medline Cath Pack Medline 1 [id number] 629875 91492 98 7474 5 ([id number]) Bag Decanter Microtek 1 481028 37251 98 5510 5 () Medical Inc. EMERALD Guide Cardinal 1 502-455 411273 819939 99 9049 5 Wire (502-455) Health SHEATH 5FR Terumo 1 ZVW149 730342 578389 99 4563 5 Colony (VYL282) DIAGNOSTIC UF 5Fr Cardinal 1 [id number] 885769 881151 99 9665 10 catheter Beryllium (740574T5) SHEATH 6FR Terumo 1 RSR01 043148 73878 99 9574 5 Destination (RSR01) SHEATH 6FR Terumo 1 MAS578 230053 109487 99 5253 40 Colony (WAY526) GLIDE WIRE Super Terumo 1 GP0897 520772 063036 99 9615 5 Stiff Angled 260cm (XT8847) INFLATOR Merit Merit 1 MK8770 718070 632676 99 2434 15 [facility] (EW5162) LASER Turbo-Power Paula 1 420-050 453405 380030229 99 9982 5 2.0 atherectomy Healthcare catheter (077614) (732766) CHOICE PT Extra [place] 1 [id number] 99 8896 5 Support J 300cm Scientific guide wire (6134021V5) STELLAREX 6 x 40 Paula 1 [id number] 434313 392808 99 9993 5 MS balloon [facility] ([id number]) (211286) EXOSEAL 6Fr Cardinal 1 EX600 370592 656442 99 6240 10 (EX600) Health Signature Audit [place] Stage Time Signature Unsigned Intra-Procedure 04/19/2019 January 11:28:45 AM Rachana RT(R) (CV) Intra-Procedure 04/19/2019 Nikhil 11:29:10 AM Christo GOODEN Intra-Procedure 04/19/2019 Umberto Ramey 11:29:35 AM [place] [id number] [place] [id number]
[~2019-04-19 08:32] MED LIST changes: -AMOX TR-K CLV 21 TAB PO; -HYDROCODON-ACE1 EA10 PO; -ISOSORBIDE MONO60 M1 PO; -NITROSTAT0.4 MG SL
[2019-04-19] MEDS ORDERED: HYDROCODON-ACE1 EA10 PO (08:49)
[2019-04-19] MEDS ORDERED: ISOSORBIDE MONO60 M1 PO (08:50)
[2019-04-19] MEDS ORDERED: NITROSTAT0.4 MG SL (08:51)
[2019-04-19 09:10] VITALS: BP 121/66; Ht 188 cm; Wt 104.5 kg
[2019-04-19 09:24] LABS: BASOPHILS 0.5 % (0-2); EOSINOPHILS 2.2 % (0-7); HEMATOCRIT 39.4 % (42.0-54.0); IMMATURE GRANULOCYTES 0.3 % (0-5); LYMPHOCYTES 20.9 % (15-50); MCH 28.8 pg (26.0-34.0); MCV 87.2 fL (80.0-100.0); MEAN PLATELET VOLUME 9.8 fL (7.4-10.4); MONOCYTES 9.5 % (2-11); NEUTROPHILS 66.9 % (40-80); RBC 4.52 10x6/uL (4.20-6.10)
[2019-04-19 09:27] LABS: PLATELET COUNT 342 10x3/uL (130-400)
[2019-04-19 09:42] LABS: CALCIUM 9.4 mg/dL (8.5-10.1); CARBON DIOXIDE 23.5 mmol/L (21.0-32.0); CREATININE - SERUM 1.4 mg/dL (0.6-1.3); POTASSIUM - SERUM 4.5 mmol/L (3.5-5.1)
--- NOTE | 2019-04-19 11:36 | NUR ---
REC TO ROOM VIA STRETCHER FROM SWITCHBOARD OPERATOR ASSISTANT. MONITORING INITIATED. R GROIN SOFT, DRESSING GAUZE AND TEGADERM CDI, WIGGLES TOES, FOOT WARM. PULSE PALP. AT BEDSIDE. BED LOCKED, RAILS UP, CALL LIGHT IN REACH. ELVIS SIPS OF WATER. DENIES NEEDS. INSTR TO KEEP R LEG STRAIGHT AND KEEP HEAD RELAXED ON PILLOW.
--- NOTE | 2019-04-19 11:50 | NUR ---
VSS, HR NSR 70, BP 100/52. R GROIN CDI, SOFT. NO BLEEDING OR HEMATOMA. DENIES NEEDS.
[2019-04-19] MEDS ORDERED: PLAVIX75 MG PO (11:56)
--- NOTE | 2019-04-19 12:05 | NUR ---
R GROIN CDI, SOFT. NO BLEEDING OR HEMATOMA. DENIES PAIN. VSS, HR 76 NSR AND BP 103/52.
--- NOTE | 2019-04-19 12:21 | NUR ---
R GROIN CDI, SOFT. NO BLEEDING OR HEMATOMA. VSS, NSR 75, BP 89/57 MAP 67. PT ELVIS COFFEE AND WATER. DENIES PAIN.
--- NOTE | 2019-04-19 12:35 | NUR ---
VSS, HR 70 NSR, BP 96/53. R GROIN SOFT, CDI. NO BLEEDING/HEMATOMA. DENIES PAIN. REMAINS AT BEDSIDE.
--- NOTE | 2019-04-19 13:05 | NUR ---
R GROIN SOFT, CDI. NO BLEEDING/HEMATOMA. PPP. DENIES PAIN.
--- NOTE | 2019-04-19 13:32 | NUR ---
R GROIN CDI, SOFT. PPP. NO BLEEDING/HEMATOMA. VSS, HR NSR 70, BP 107/54. EXPL ONE MORE HOUR OF LYING FLAT. VERBALIZES UNDERSTANDING.
--- NOTE | 2019-04-19 13:55 | NUR ---
REQ URINAL. PROVIDED. DECLINES ASSISTANCE.
--- NOTE | 2019-04-19 14:05 | NUR ---
VOIDED 375ML CLEAR YELLOW URINE. R GROIN SOFT, CDI, NO BLEEDING/HEMATOMA. HOB RAISED. C/O COLD. WARM BLANKET PROVIDED.
--- NOTE | 2019-04-19 14:15 | NUR ---
SANDWICH, JUICE PROVIDED. CONT C/O COLD, SHIVERING. SECOND WARM BLANKET PROVIDED AND YASMEEN NORRIS INITIATED 38*.
--- NOTE | 2019-04-19 14:25 | NUR ---
CONT TO [facility], C/O COLD. TEMP 99.4. SPOKE W LETY CHE RN, ADVISED TO NOTIFY DR DURAN. CALLED MED [address] DURAN TO CALL UNIT WHEN HE ROUNDS, HE WAS HEADED THERE.
--- NOTE | 2019-04-19 14:35 | NUR ---
FSBS 68, PT TAKING CRANBERRY JUICE AND PEANUT BUTTER/CRACKERS. WILL RECHECK 15-20 MIN.
--- NOTE | 2019-04-19 14:47 | NUR ---
SPOKE W DR DURAN, STATES HE WILL WRITE RX PO ABX FOR PT W TEMP 99.4, RIGORS, AND C/O PAIN WITH DEEP BREATHS AND HX OF COLD SYMPTOMS PAST FEW DAYS. PO TYLENOL ORDERED FOR NOW DOSE.
--- NOTE | 2019-04-19 15:02 | NUR ---
RECHECK FSBS 87. PT STILL SHAKING BUT IT IS NOT VIOLENT. DR DURAN WROTE FOR AUGMENTIN 500 BID X 7 DAYS. TYLENOL ADMINISTERED PER ORDER. R GROIN REMAINS SOFT, CDI. NO BLEEDING OR HEMATOMA.
[2019-04-19] MEDS ORDERED: AMOX TR-K CLV 21 TAB PO (15:07)
--- NOTE | 2019-04-19 15:38 | NUR ---
IV DC, TIP INTACT. MONITORING DC. PT STATES "I'M FEELING BETTER". INSTRUCTED TO FILL NEW PRESCRIPTIONS TONIGHT, AND TO START ANTIBIOTIC TONIGHT. IF NOT FEELING BETTER TOMORROW, ADVISED TO GO TO WALKIN CLINIC. [facility] HAS APPT W DR MARTINEZ 04/26. ADVISED NOT TO WAIT TIL THEN IF HE STILL FEELS BAD TOMORROW. STATES HE WILL CALL DR MARTINEZ MONDAY IF HE IS STILL FEELING BAD. R GROIN SOFT, NONTENDER. NO BLEEDING OR HEMATOMA. PT ASSISTING HIM TO DRESS.
--- NOTE | 2019-04-19 15:55 | NUR ---
PT AMB TO RESTROOM TO VOID. C/O SOME DISCOMFORT IN [place] DURING VOIDING. DC INSTRUCTIONS REVIEWED, VERBALIZES UNDERSTANDING. AGAIN REITERATED NEED TO F/U W WALKIN CLINIC OR DR MARTINEZ IF HE DOESN'T FEEL BETTER TOMORROW. PT AND VERBALIZE UNDERSTANDING OF NEED TO BEGIN ANTIBIOTICS THIS EVENING. DC HOME W VIA PRIVATE CAR.
--- NOTE | 2019-04-25 10:39 | OP ---
PATIENT NAME: RACHELL MEYER MEDICAL RECORD: [id number] :[birth year] LOCATION:[facility] ADMISSION DATE: SURGEON: YADIEL DURAN MD DATE OF OPERATION: 04/19/2019 PROCEDURES: 1. Laser atherectomy SFA, left. 2. SENIOR RELATIONSHIP MANAGER SFA, left. 3. Aortofemoral runoff. 4. Abdominal aortography. INDICATION: Claudication and peripheral vascular disease. PROCEDURE IN DETAIL: After informed consent was obtained and after a detailed description of risks, benefits as well as alternative therapies, the patient elected to proceed with angiogram and angioplasty. The right femoral area was prepped and draped in normal sterile fashion. Right femoral artery was cannulated via modified Seldinger technique with placement of a 6-Gibraltarian jmggpm-xfu-xwga sheath. All catheters exchanged through this sheath. FINDINGS: Abdominal angiography was performed. The catheter was pulled down for aortofemoral runoff. Abdominal aortography reveals no significant abdominal aortic disease, no dissection or aneurysm formation. RIGHT LEG: A. Iliac: The common internal and external iliacs have mild irregularities, but no flow-limiting stenosis. B. Femoral system: The common superficial and deep femoral have mild irregularities, but no flow-limiting stenosis. Previously placed stents have no significant restenosis. C. Popliteal and infrapopliteal vessels have preserved 3-vessel runoff to the foot. LEFT LEG: A. Iliac: The common internal and external iliacs have mild irregularities, but no flow-limiting stenosis. B. Femoral system: The common and deep femoral are widely patent. Superficial femoral has a previously placed stent with 70% in-stent restenosis throughout the proximal aspect of the stent. C. Popliteal and infrapopliteal vessels are patent with good 3-vessel runoff to the foot. LASER ATHERECTOMY, SENIOR RELATIONSHIP MANAGER OF THE LEFT SFA: We used the peripheral laser catheter for multiple passes made at 60/40. We then used a drug-eluting balloon Stellarex inflations of 2 minutes for dilution of the drug, 0% residual stenosis. OVERALL IMPRESSION: Successful laser atherectomy, drug-eluting SENIOR RELATIONSHIP MANAGER of the left SFA going from 70% initial stenosis to 0% residual. TRANSINT:[id number] Voice Confirmation ID: [id number] DOCUMENT ID: [id number] OPERATIVE REPORT [id number] BETSYRACHELL SALMON YADIEL BOO MD at 1039 CC: [id number] DICTATION DATE: 04/19/19 1130 MARRIAGE THERAPIST: 04/19/19 1547 DEP CLI 04/19/19 [place] [id number] [place] [address]
== END 2019-04-19 15:55 | disposition home or self-care (01) ==
LOC: D.CATH 08:32
PROVIDERS: ATTEND Internal Medicine Interventional Cardiology
DX: I73.9 Peripheral vascular disease, unspecified (principal); I25.10 Atherosclerotic heart disease of native coronary artery without angina pectoris; I10 Essential (primary) hypertension

== ENCOUNTER → 2020-08-25 09:14 | Day surgery (SDC) | payer OTHER ==
[2019-04-19 09:10] VITALS: BMI 29.6
--- NOTE | ~2020-08-25 | HEMODYNAMI ---
PATIENT:RACHELL MEYER MEDICAL RECORD: [id number] : 57 LOCATION:[facility]# [id number] ADMISSION DATE: 08/25/20 Generatedon::54 Patient name: RACHELL MEYER Patient #: [id number] SSN: [id number] : 1955 Date of study: 08/25/2020 Page: Of Hemodynamic Procedure Report Patient Data Patient Demographics Procedure consent was obtained First Name: RACHELL Gender: Male Last Name: BETSY : 1955 [facility] Initial: JAYCOB Age: 65 year(s) Patient #: [id number] Race: Unknown SSN: [id number] Additional ID: [id number] Contact details [address]: [address] [place] [address] State: [place] City: [place] Zip code: [address] Past Medical History Allergies Allergen Reaction Date Comments Reported Other allergy 12/22/2017 crestor Other allergy 07/27/2018 CRESTOR Other allergy 08/24/2018 CRESTOR Other allergy 04/19/2019 rosuvastatin(CRESTOR) Statins 08/25/2020 Admission Admission Data Admission Date: 08/25/2020 Admission Time: 9:14 Procedure Procedure Types Cath Procedure Peripheral Cath Diagnostic Procedure Miscellaneous Aspiration/Injection (Joint) Procedure Description Procedure Date Procedure Date: 08/25/2020 Procedure Start Time: 9:45 Procedure Staff Name Function Adair Toledo MD Performing Physician Joel Vallecillo RT Monitor Aleksandra Pang RT Monitor Procedure Data Cath Procedure Fluoroscopy Diagnostic fluoroscopy Total fluoroscopy Time: 0.3 time: 0.3 min min Diagnostic fluoroscopy Total fluoroscopy dose: 4 dose: 4 mGy mGy Hemodynamics Rest Pre Cath Intra NCS Post Cath Procedure Log Time Note 9:33:34 Time tracking: Regular hours (M-F 7:00 - 5:00) 9:34:19 Patient received from Other to IR Alert and oriented. Tansferred to table in Supine position. 9:35:35 Signed procedure consent form obtained from patient. 9:36:11 Patient allergic to Statins 9:36:15 Is the patient allergic to Iodine/contrast media? No. 9:36:30 SAFE-T PLUS MYELOGRAM TRAY opened to sterile field. 9:36:39 9:37:04 Right Hip was prepped with betadine and draped in sterile fashion. 9:44:53 Physician arrived 9:44:54 --------ALL STOP TIME OUT------ 9:44:55 Final Timeout: patient, procedure, and site verified with staff and physician. All members of the team are in agreement. 9:45:10 Procedure started. 9:45:11 Full Disclosure recording started 9:45:20 Local anesthetic to Right Hip with Lidocaine 1% by Adair Toledo MD.INITIAL ACCESS ONLY 9:51:59 right hip injected with steroid and bupivacaine 9:53:29 Procedure ended.(Physican Out) 9:53:51 Fluoroscopy time 00.30 minutes. 9:53:55 Fluoroscopy dose: 4 mGy 9:53:55 Flurop Dose total: 4 9:53:57 Procedure and supply charges have been captured, reviewed, submitted and are correct. Device Usage Item Name Manufacture Quantity Catalog Hospital Part Current Minimal Lot# / Number Charge Number Stock Stock Serial# Code SAFE-T CareFusion 1 [id number] PLUS MYELOGRAM TRAY Signature Audit [place] Stage Time Signature Unsigned Intra-Procedure 08/25/2020 Aleksandra Pang 9:54:31 AM (R) [facility] [address] [place] [address]
[~2020-08-25 09:14] MED LIST changes: +AMOX TR-K CLV 21 TAB PO; +HYDROCODON-ACE1 EA10 PO; +ISOSORBIDE MONO60 M1 PO; +NITROSTAT0.4 MG SL
== END | disposition home or self-care (01) ==
LOC: D.RAD 09:14
PROVIDERS: ATTEND Clinical Nurse Specialist Family Health
DX: M16.11 Unilateral primary osteoarthritis, right hip (principal)